=== PATIENT | female | born 1935 | race Caucasian/White ===

== ENCOUNTER → 2017-10-24 09:47 | Outpatient (CLI) | payer MEDICARE, BC, SELFPAY ==
--- NOTE | 2017-10-24 10:06 | XR_ITS ---
XR chest 2V Ordering Physician: Melissa Guzmán Patient Age: 82 years: Female HISTORY: ITS.REASON: SHORTNESS OF BREATH] TECHNIQUE: PA lateral chest COMPARISON :PA and lateral chest October 2013 most. Useful. FINDINGS Lungs are well expanded and clear, with nothing definitely acute No significant change since October 2013. Again the generous right infrahilar area is noted but appears similar, stable when technique considered. There is a loop recorder now evident, to the left of midline old projected over the left heart Heart is normal in size. Ellen Structures unremarkable. IMPRESSION: Lungs clear no active disease. . No change since previous 2013 study except to note the new Loop recorder anterior chest the left of midline
== END ==
PROVIDERS: PCP Nurse Practitioner Family; Visit Provider Nurse Practitioner Family
DX: R06.02 Shortness of breath (principal)
CPT/HCPCS: 71046

== ENCOUNTER → 2017-11-22 10:03 | Outpatient (POV) | payer MEDICARE, BC, SELFPAY | PROVIDERS: Family Provider Nurse Practitioner Family; PCP Nurse Practitioner Family; Visit Provider Otolaryngology | DX: Z00.00 Encounter for general adult medical examination without abnormal findings (principal) ==

== ENCOUNTER → 2017-12-09 10:03 | Outpatient (CLI) | payer MEDICARE, BC, SELFPAY ==
[2017-12-09 10:28] LABS: Blood Urea Nitrogen 31 mg/dL (7-18); Creatinine,Serum 0.65 mg/dL (0.55-1.02); Estimated Glomerular Filt Rate 88 ml/min (>60); GFR (African American) 106 ML/MIN (>60)
--- NOTE | 2017-12-09 10:40 | CT_ITS ---
CT soft tissue neck w con Ordering Physician: Rhina Salazar MD Patient Age: 82 years: Female HISTORY: ITS.REASON: GUSTATORY SWEATING HISTORY of surgery right neck for right neck nodule? Parotid mass. TECHNIQUE: Helical CT scanning performed through the cervical spine with sagittal and coronal reconstruction CT workstation COMPARISON :Previous CT neck 05/20/2016. FINDINGS Right parotid gland is been removed since previous study 2016. Surgical changes in the factors seen here anteriorly to the right ear. See no discrete findings at the resected parotid bed . However Deep to the resected parotid there is some stable mild asymmetric fullness at the right lateral parapharyngeal region. This area just superior to the submandibular gland on coronal image 19, 20, and seen just lateral to the base of the tongue is seen on axial images 30,-34.. Also evident on sagittal image 21, just below the angle of mandible. Estimated was likely present before and has not progressed. Likely a moderate size but fairly stable lymph node.. However It does warrant correlation and follow-up. It measures up to 13 mm , axial images times up to 17 mm height on sagittal slice 21 . No adenopathy otherwise seen at the right or left neck. ---- Incidental Right maxillary sinusitis: Layering bubbly thick air-fluid level at right maxillary sinus suggesting incidental active/acute right maxillary sinusitis. However only scant mucosal thickening at floor otherwise appreciated. Note dome shaped mucosal thickening or likely retention cyst at the floor the left maxillary sinus. 17 mm wide. 21 mm height. Densely calcified carotid bifurcation bilaterally.. Dense calcified plaque extending towards the right ICA with at least moderate stenosis here. Suspect 60-75 % stenosis. Consider CTA carotids to better evaluate. Less pronounced plaque stenosis at the origin of left internal carotid incidentally noted as well. Submandibular glands appear normal. Thyroid appears satisfactory. *There is a concerning new 10 mm times 11 mm irregular margin nodular density at the apex of left lung axial image [address] chest with contrast to further evaluate. . The prominent degenerative changes of the cervical spine are again observed with incomplete segmentation or/ fusion at C4/5 yielding kyphosis. 4 mm anterolisthesis of C3 on C4 is noted. Marked degenerative disc space narrowing posterior hypertrophic ridging and with slight retrolisthesis at C5/6. Features combine to yield central canal stenosis most evident at this level At C6/7 there disc space narrowing and mild spondylosis. These features appear stable. Yielding IMPRESSION--------- 1. Parotid gland has been resected since 2016. No discrete findings at the bed of the prostate itself. 2. However deep to the resected parotid bed there is a stable mild asymmetry noted., This likely due to a likely generous sized node at lateral right parapharyngeal region, lateral to the base the tongue & just superior to the submandibular gland,, just beneath angle of mandible on right... I believe this was evident previously an overall appears fairly stable since 2016. 3.. New 11 mm irregular new LUNG NODULE left apex. This is Concerning. Requires CT chest to further evaluate* 4. Significant calcification at carotid bifurcations bilaterally right greater than left. Calcified plaque extends to the proximal right ICA with moderate right ICA stenosis (est up to 60-75 % stenosis on this study) with less evident mild left ICA stenosis. 5.. Stable prominent degenerative changes cervical spine 6. Bubbly thick Air-fluid level right maxillary sinus suggesting active/acute right maxillary sinusitis.
--- NOTE | 2017-12-09 11:13 | HMH.ITSHM ---
SYNTHYROID,NAPROXEN,BACLOFEN,METOPROLOL ESTRADILOL
== END ==
PROVIDERS: Family Provider Nurse Practitioner Family; PCP Nurse Practitioner Family; Visit Provider Otolaryngology
DX: L74.519 Primary focal hyperhidrosis, unspecified (principal)
CPT/HCPCS: 36415; 70491; 82565; 84520; Q9967

== ENCOUNTER → 2017-12-15 11:34 | Outpatient (CLI) | payer MEDICARE, BC, SELFPAY ==
--- NOTE | 2017-12-15 | CT_ITS ---
CT chest w con HISTORY: Left apical mass ITS.REASON: LUNG MASS ORDERING PHYSICIAN: Rhina Salazar MD PATIENT AGE: 82 years TECHNIQUE: Axial images obtained following the administration of 75 mL of Isovue 370 . Sagittal, and coronal reformatted images are also generated and reviewed. COMPARISON: Neck CT of 12/09/2017 FINDINGS: No mediastinal or hilar adenopathy. Coronary artery calcifications present. A loop recorder device is present in the subcutaneous soft tissues in the precordial region on the left. There are centrilobular and paraseptal changes. No effusions or infiltrates are evident. A few scattered fibrotic areas. There is a 13 x 11 mm x 11 mm somewhat spiculated nodule in the left upper lobe in the central aspect of the apicoposterior segment. This is noncalcified and has a suspicious appearance for neoplasm. There are other noncalcified pulmonary nodules in both lungs including a 6 x 6 mm nodule in the right upper lobe laterally and in early, a 6 mm fissural nodule in the right major fissure inferiorly, a 5 mm nodule in the left upper lobe laterally. These latter nodules are smaller and less suspicious. Fibrotic changes are present in both lung bases. Upper abdominal images show a mildly enlarged left adrenal gland probably due to adenomatous involvement. No bony destructive process. IMPRESSION: 1. 13 x 11 mm suspicious nodule in the left upper lobe suspicious for neoplasm. Consider PET/CT for further evaluation. Additional small nodules are present in both lungs as described above and may also be evaluated with PET CT. 2. No mediastinal or hilar adenopathy. 3. Centrilobular and paraseptal emphysematous changes. 4. Coronary artery disease
== END ==
PROVIDERS: Family Provider Nurse Practitioner Family; PCP Nurse Practitioner Family; Visit Provider Otolaryngology
DX: R91.8 Other nonspecific abnormal finding of lung field (principal)
CPT/HCPCS: 71260; Q9967

== ENCOUNTER → 2018-01-02 10:37 | Outpatient (POV) | payer MEDICARE, BC, SELFPAY ==
[2018-01-02 10:51] VITALS: BP 150/62; PULSE 65; RESP 24; O2SAT 97; BMI 26.5
--- NOTE | 2018-01-02 11:50 | HMH.PMCON ---
Assessment and Plan (1) Postlaminectomy syndrome Current visit: Yes Status: Chronic Category: Medical Code(s): M96.1 - Postlaminectomy syndrome, not elsewhere classified (2) Degenerative disc disease, lumbar Current visit: Yes Status: Chronic Category: Medical Code(s): M51.36 - Other intervertebral disc degeneration, lumbar region - Assessment and plan all Dx Assessment and Plan for all problems:: We will begin the process of potentially doing an intrathecal pain pump. Patient will go for a psychological evaluation and then we will trial. Patient has realistic goals as far as pain management. We had a long discussion about intrathecal pain pump and I answered all her questions. Patient is not on any blood thinners. Patient's tried and failed medications, anti-inflammatories, physical therapy, surgery. I will follow-up this patient after her intrathecal pain pump trial. This note was dictated using voice recognition software and may contain errors or omissions HPI - Data of Consult Consult date: 01/02/18 Requesting Physician: Greta Soto APRN Primary Care Provider: Melissa Guzmán APRN Family Provider: Melissa Guzmán APRN - Consult Narrative Reason for consult: Back pain History of present illness: Ms. Mccarthy is a 83 year old female who presents today for consultation in regards to her low back pain. Patient has had 2 back surgeries a few years ago. Patient has had lower back pain since then. Patient states that the surgery did help her bilateral leg pain. Patient had an injury back in the 1980s which was the start of her issues. Patient has tried surgery, injective therapy, medications. Patient also has done physical therapy in the past. Patient has had no long-term relief. Patient would like to have more functionality. Patient would like to be able to do her activities of daily living better. Patient is not interested in long-term pain medications. I believe that given her age that this is appropriate. Patient is interested in intrathecal pain pump therapy CC: Greta Soto APRN [facility] History I have reviewed the patient's past medical history: Yes Medical History: Reports:: Hyperlipidemia, Hypertension Denies:: Diabetes Mellitus Type 1, Diabetes Mellitus Type 2 - *Social History Educational Level: Attended High School Smoking Status: Current some day smoker Tobacco Type: cigarettes # Packs/Day (cigarettes): 1 Alcohol Intake: never Occupational Status: retired, disabled Housing: apartment - Psychiatric History Expresses thoughts of harming self/others: None Suicide Plan Description: No Plan Comment: Rheumatoid arthritis Review of Systems - Review of Systems ROS General: no recent weight change, no fever, no sleep disturbances Respiratory: no cough, no shortness of air, no recurring pulmonary infections Cardiovascular/Peripheral Vascular: No chest pain, No palpitations, no edema, no shortness of breath. Gastrointestinal: no incontinence, normal bowel movements reported Genitourinary: no new onset incontinence Musculoskeletal: Back pain Psychiatric: normal mood/ affect Neurological: [denies weakness in extremities], [denies balance issues] Meds Home Medications Medication Instructions Recorded Confirmed Type Baclofen [Lioresal 10mg tablet] 10 mg PO TID 01/02/18 01/02/18 History Estradiol [Estradiol] 1 mg PO DAILY 01/02/18 01/02/18 History Levothyroxine Sodium 50 mcg PO DAILY 01/02/18 01/02/18 History [Levothyroxine 50mcg (0.05mg) Tab] Metoprolol Tartrate [Metoprolol 50 mg PO BID 01/02/18 01/02/18 History Tartrate] Naproxen [Naproxen] 500 mg PO BID 01/02/18 01/02/18 History Pravastatin Sodium 10 mg PO DAILY 01/02/18 01/02/18 History Allergies Allergy/AdvReac Type Severity Reaction Status Date / Time Tetanus Vaccines and Toxoid Allergy Unknown SWELLING Unverified 09/20/17 15:19 [Tetanus Vaccines & Toxoid] Objective Vital
--- NOTE | 2018-01-02 11:54 | P.CONS_ITS ---
Assessment and Plan (1) Postlaminectomy syndrome Current visit: Yes Status: Chronic Category: Medical Code(s): M96.1 - Postlaminectomy syndrome, not elsewhere classified (2) Degenerative disc disease, lumbar Current visit: Yes Status: Chronic Category: Medical Code(s): M51.36 - Other intervertebral disc degeneration, lumbar region - Assessment and plan all Dx Assessment and Plan for all problems:: We will begin the process of potentially doing an intrathecal pain pump. Patient will go for a psychological evaluation and then we will trial. Patient has realistic goals as far as pain management. We had a long discussion about intrathecal pain pump and I answered all her questions. Patient is not on any blood thinners. Patient's tried and failed medications, anti-inflammatories, physical therapy, surgery. I will follow-up this patient after her intrathecal pain pump trial. This note was dictated using voice recognition software and may contain errors or omissions HPI - Data of Consult Consult date: 01/02/18 Requesting Physician: Greta Soto APRN Primary Care Provider: Melissa Guzmán APRN Family Provider: Melissa Guzmán APRN - Consult Narrative Reason for consult: Back pain History of present illness: Ms. Mccarthy is a 83 year old female who presents today for consultation in regards to her low back pain. Patient has had 2 back surgeries a few years ago. Patient has had lower back pain since then. Patient states that the surgery did help her bilateral leg pain. Patient had an injury back in the 1980s which was the start of her issues. Patient has tried surgery, injective therapy, medications. Patient also has done physical therapy in the past. Patient has had no long-term relief. Patient would like to have more functionality. Patient would like to be able to do her activities of daily living better. Patient is not interested in long-term pain medications. I believe that given her age that this is appropriate. Patient is interested in intrathecal pain pump therapy CC: Greta Soto APRN [facility] History I have reviewed the patient's past medical history: Yes Medical History: Reports:: Hyperlipidemia, Hypertension Denies:: Diabetes Mellitus Type 1, Diabetes Mellitus Type 2 - *Social History Educational Level: Attended High School Smoking Status: Current some day smoker Tobacco Type: cigarettes # Packs/Day (cigarettes): 1 Alcohol Intake: never Occupational Status: retired, disabled Housing: apartment - Psychiatric History Expresses thoughts of harming self/others: None Suicide Plan Description: No Plan Comment: Rheumatoid arthritis Review of Systems - Review of Systems ROS General: no recent weight change, no fever, no sleep disturbances Respiratory: no cough, no shortness of air, no recurring pulmonary infections Cardiovascular/Peripheral Vascular: No chest pain, No palpitations, no edema, no shortness of breath. Gastrointestinal: no incontinence, normal bowel movements reported Genitourinary: no new onset incontinence Musculoskeletal: Back pain Psychiatric: normal mood/ affect Neurological: [denies weakness in extremities], [denies balance issues] Meds Home Medications Medication Instructions Recorded Confirmed Type Baclofen [Lioresal 10mg tablet] 10 mg PO TID 01/02/18 01/02/18 History Estradiol [Estradiol] 1 mg PO DAILY 01/02/18 01/02/18 History Levothyroxine Sodium 50 mcg PO DAILY 01/02/18 01/02/18 History [Levothyr
== END ==
PROVIDERS: Family Provider Nurse Practitioner Family; PCP Nurse Practitioner Family; Visit Provider Clinical Nurse Specialist Family Health
DX: M51.36 Other intervertebral disc degeneration, lumbar region (principal)
CPT/HCPCS: 99212; 99202

== ENCOUNTER → 2018-01-31 10:01 | Outpatient (POV) | payer MEDICARE, BC, SELFPAY ==
[2018-01-31 10:08] VITALS: BP 139/67; PULSE 64; RESP 18; TEMP 36.6; O2SAT 98; BMI 26.1
--- NOTE | 2018-01-31 10:23 | HMH.PAINSOAP ---
[facility] Pain Management SOAP Note Subjective:: Patient is a pleasant 83-year-old white female who presents today for follow-up after intrathecal pain pump trial. Patient states that during her trial she had 80-90% relief of her pain symptoms lasting up to 4-5 hours post trial. Patient states she was much more functional. Physical therapy measurements showed market improvement pre-and post trial. Patient states she was able to walk better. Patient denies any side effects. Patient is interested in pursuing permanent placement of intrathecal pain pump. The intrathecal catheter was placed at T12 vertebral body. She has tried and failed other conservative therapy such as previous surgery, injections, local therapy, medications. ROS General: no recent weight change, no fever, no sleep disturbances Respiratory: no cough, no shortness of air, no recurring pulmonary infections Cardiovascular/Peripheral Vascular: No chest pain, No palpitations, no edema, no shortness of breath. Gastrointestinal: no incontinence, normal bowel movements reported Genitourinary: no incontinence Musculoskeletal: Back pain, bilateral leg pain Psychiatric: normal mood/ affect, [denies depression], [denies anxiety] Neurological: [denies weakness in extremities], [denies balance issues] Objective:: Physical Exam General: Alert and oriented x3, no acute distress, pleasant and cooperative, [on room air] Lungs: Resps E/U, Symmetrical chest expansion, Eyes: PERRL Musculoskeletal: Flexion and extension of lumbar spine somewhat guarded secondary to pain, deep tendon reflexes normal, strength in upper and lower extremities [5/5], [abnormal gait noted] Neurological: speech clear, ceramic painter equal, no gross sensory deficits Assessment:: Degenerative disc disease of lumbar spine with lumbar radiculopathy symptoms of postlaminectomy syndrome of the lumbar spine Plan:: We will schedule permanent placement of intrathecal pain pump. We will start the patient on intrathecal morphine 5 mg/mL and start her at 0.25 mg per day with the catheter tip being at T12 per Dr. Hayward. I will follow-up with the patient after her intrathecal pain pump placement. Patient and I discussed risks and I answered all of her questions. Patient has been instructed to call the office if she has any additional questions. This note was dictated using voice recognition software and may contain errors or omissions
--- NOTE | 2018-01-31 10:27 | P.CONS_ITS ---
[facility] Pain Management SOAP Note Subjective:: Patient is a pleasant 83-year-old white female who presents today for follow-up after intrathecal pain pump trial. Patient states that during her trial she had 80-90% relief of her pain symptoms lasting up to 4-5 hours post trial. Patient states she was much more functional. Physical therapy measurements showed market improvement pre-and post trial. Patient states she was able to walk better. Patient denies any side effects. Patient is interested in pursuing permanent placement of intrathecal pain pump. The intrathecal catheter was placed at T12 vertebral body. She has tried and failed other conservative therapy such as previous surgery, injections, local therapy, medications. ROS General: no recent weight change, no fever, no sleep disturbances Respiratory: no cough, no shortness of air, no recurring pulmonary infections Cardiovascular/Peripheral Vascular: No chest pain, No palpitations, no edema, no shortness of breath. Gastrointestinal: no incontinence, normal bowel movements reported Genitourinary: no incontinence Musculoskeletal: Back pain, bilateral leg pain Psychiatric: normal mood/ affect, [denies depression], [denies anxiety] Neurological: [denies weakness in extremities], [denies balance issues] Objective:: Physical Exam General: Alert and oriented x3, no acute distress, pleasant and cooperative, [ on room air] Lungs: Resps E/U, Symmetrical chest expansion, Eyes: PERRL Musculoskeletal: Flexion and extension of lumbar spine somewhat guarded secondary to pain, deep tendon reflexes normal, strength in upper and lower extremities [5/5], [abnormal gait noted] Neurological: speech clear, driving instructor equal, no gross sensory deficits Assessment:: Degenerative disc disease of lumbar spine with lumbar radiculopathy symptoms of postlaminectomy syndrome of the lumbar spine Plan:: We will schedule permanent placement of intrathecal pain pump. We will start the patient on intrathecal morphine 5 mg/mL and start her at 0.25 mg per day with the catheter tip being at T12 per Dr. Hayward. I will follow-up with the patient after her intrathecal pain pump placement. Patient and I discussed risks and I answered all of her questions. Patient has been instructed to call the office if she has any additional questions. This note was dictated using voice recognition software and may contain errors or omissions
== END ==
PROVIDERS: Family Provider Nurse Practitioner Family; PCP Nurse Practitioner Family; Visit Provider Clinical Nurse Specialist Family Health
DX: M54.16 Radiculopathy, lumbar region (principal)
CPT/HCPCS: 99212

== ENCOUNTER → 2018-04-04 09:22 | Outpatient (POV) | payer MEDICARE, BC, SELFPAY ==
[2018-04-04 09:36] VITALS: BP 119/75; PULSE 110; RESP 18; O2SAT 96; BMI 27.1
--- NOTE | 2018-04-04 10:30 | HMH.PAINSOAP ---
[facility] Pain Management SOAP Note Subjective:: Patient is a pleasant 83-year-old white female who presents today for follow-up after intrathecal pain pump patient. Patient is currently on a pump of 0.25 mg per day. Patient rates her pain a 1 out of 10 today. She states she is doing very well she does have some intermittent nausea would like some medication for this. Patient states that she is having better bladder control than typical. Patient had her stitches removed the site looks good clean and intact there is no sign symptoms of infection. Patient is continuing to wear her abdominal binder. ROS General: no recent weight change, no fever, no sleep disturbances Respiratory: no cough, no shortness of air, no recurring pulmonary infections Cardiovascular/Peripheral Vascular: No chest pain, No palpitations, no edema, no shortness of breath. Gastrointestinal: no incontinence, normal bowel movements reported Genitourinary: no incontinence Musculoskeletal: Back pain, leg pain Psychiatric: normal mood/ affect Neurological: [denies weakness in extremities], [denies balance issues] Objective:: Physical Exam General: Alert and oriented x3, no acute distress, pleasant and cooperative, [on room air] Lungs: Resps E/U, Symmetrical chest expansion, Eyes: PERRL Musculoskeletal: Flexion and extension of lumbar spine somewhat guarded secondary to pain, deep tendon reflexes normal, strength in upper and lower extremities [5/5], nightly antalgic gait noted, patient is no longer utilizing a cane for stability Neurological: speech clear, supreme court judge equal, no gross sensory deficits Assessment:: Degenerative disc disease of the lumbar spine with lumbar radiculopathy symptoms with postlaminectomy syndrome of the lumbar spine Plan:: I will see the patient back in 2 weeks we will reassess her symptoms and adjust her in any way she may need. Patient is doing extremely well on her morphine 0.25 mg a day infusion. Patient has been instructed to call our office if she has any issues prior to her next appointment. We will call in Zofran 4 mg 1 p.o. every 8 hours as needed for the patient. This note was dictated using voice recognition software and may contain errors or omissions
--- NOTE | 2018-04-04 10:33 | P.CONS_ITS ---
[facility] Pain Management SOAP Note Subjective:: Patient is a pleasant 83-year-old white female who presents today for follow-up after intrathecal pain pump patient. Patient is currently on a pump of 0.25 mg per day. Patient rates her pain a 1 out of 10 today. She states she is doing very well she does have some intermittent nausea would like some medication for this. Patient states that she is having better bladder control than typical. Patient had her stitches removed the site looks good clean and intact there is no sign symptoms of infection. Patient is continuing to wear her abdominal binder. ROS General: no recent weight change, no fever, no sleep disturbances Respiratory: no cough, no shortness of air, no recurring pulmonary infections Cardiovascular/Peripheral Vascular: No chest pain, No palpitations, no edema, no shortness of breath. Gastrointestinal: no incontinence, normal bowel movements reported Genitourinary: no incontinence Musculoskeletal: Back pain, leg pain Psychiatric: normal mood/ affect Neurological: [denies weakness in extremities], [denies balance issues] Objective:: Physical Exam General: Alert and oriented x3, no acute distress, pleasant and cooperative, [ on room air] Lungs: Resps E/U, Symmetrical chest expansion, Eyes: PERRL Musculoskeletal: Flexion and extension of lumbar spine somewhat guarded secondary to pain, deep tendon reflexes normal, strength in upper and lower extremities [5/5], nightly antalgic gait noted, patient is no longer utilizing a cane for stability Neurological: speech clear, postulant equal, no gross sensory deficits Assessment:: Degenerative disc disease of the lumbar spine with lumbar radiculopathy symptoms with postlaminectomy syndrome of the lumbar spine Plan:: I will see the patient back in 2 weeks we will reassess her symptoms and adjust her in any way she may need. Patient is doing extremely well on her morphine 0.25 mg a day infusion. Patient has been instructed to call our office if she has any issues prior to her next appointment. We will call in Zofran 4 mg 1 p.o. every 8 hours as needed for the patient. This note was dictated using voice recognition software and may contain errors or omissions
== END ==
PROVIDERS: Family Provider Nurse Practitioner Family; PCP Nurse Practitioner Family; Visit Provider Clinical Nurse Specialist Family Health
DX: M54.16 Radiculopathy, lumbar region (principal)
CPT/HCPCS: 99212

== ENCOUNTER → 2018-04-07 12:51 | Outpatient (POV) | payer MEDICARE, BC, SELFPAY ==
[2018-04-07 13:03] VITALS: BP 148/78; PULSE 78; RESP 18; TEMP 36.6; O2SAT 98; BMI 28.1
--- NOTE | 2018-04-07 14:57 | HMH.PAINSOAP ---
[facility] Pain Management SOAP Note Subjective:: This patient is a pleasant 83-year-old white female who had permanent placement of intrathecal pain pump done 2 weeks ago. Presented for removal of the sutures on Tuesday of this week. She did notice some excessive drainage so she presented to the clinic today. She does have good pain control. She currently is on an intrathecal morphine infusion at 0.25 mg per day. Pain score is a 1 out of 10. She is more active. On looking at her incision she does have some serosanguineous drainage however the incision does not look infected. She does have some redness around her incision site where sutures were previously. She has no pain around the incision site. We will redress her incision site with Steri-Strips, 4 x 4's, and ABD pad and tape. She has completed her course of Bactrim. We will follow-up her on Tuesday to make sure her drainage has decreased and incision is healing appropriately. Objective:: Alert and oriented ?3 no acute distress. Patient does have an antalgic gait. Motor strength of the lower extremities is 5/5. There is no gross sensory deficit. Both incisions are healing very nice. There is some drainage from her pump site incision however it does not look infected at this time. Assessment:: Degenerative disc disease of lumbar spine with lumbar radiculopathy symptoms with intrathecal morphine pain pump in place and some drainage from her pump site incision Plan:: We will redress her incision site with Steri-Strips, 4 x 4's, and ABD pad and tape. She has completed her course of Bactrim. We will follow-up her on Tuesday to make sure her drainage has decreased and incision is healing appropriately.
== END ==
PROVIDERS: Family Provider Nurse Practitioner Family; PCP Nurse Practitioner Family; Visit Provider Anesthesiology
DX: M54.16 Radiculopathy, lumbar region (principal)

== ENCOUNTER → 2018-04-11 09:56 | Outpatient (POV) | payer MEDICARE, BC, SELFPAY ==
[2018-04-11 10:05] VITALS: BP 143/80; PULSE 80; RESP 18; O2SAT 98; BMI 28.1
--- NOTE | 2018-04-11 11:42 | HMH.PAINSOAP ---
[facility] Pain Management SOAP Note Subjective:: Patient is a pleasant 83-year-old white female who presents today for follow-up. Patient had a permanent placement of intrathecal pain pump several weeks ago. Patient had some excessive draining on Tuesday. Patient was seen by Dr. Hayward and the incision was Steri-Stripped and redressed. Patient presents today with a bandage on her back however after removal of the bandage there is no presence of fluid. There is no sign symptoms of infection. The Steri-Strips were still in place. Patient states that her pain is a 2 out of 10. She states she is doing extremely well and denies any side effects to her and her intrathecal infusion. Patient's PTC is set up at 0.06 mg over 10 minutes up to twice a day. ROS General: no recent weight change, no fever, no sleep disturbances Respiratory: no cough, no shortness of air, no recurring pulmonary infections Cardiovascular/Peripheral Vascular: No chest pain, No palpitations, no edema, no shortness of breath. Gastrointestinal: no new onset incontinence, normal bowel movements reported Genitourinary: no new onset incontinence Musculoskeletal: Back pain Psychiatric: normal mood/ affect Neurological: [denies weakness in extremities], [denies balance issues] Objective:: Physical Exam General: Alert and oriented x3, no acute distress, pleasant and cooperative, [on room air] Lungs: Resps E/U, Symmetrical chest expansion, Eyes: PERRL Musculoskeletal: Flexion and extension of lumbar spine somewhat guarded secondary to pain, deep tendon reflexes normal, strength in upper and lower extremities [5/5], slightly antalgic gait noted Name: Incision over intrathecal pain pump closed no drainage noted, no redness noted, incision over anchor has a scab in place no drainage noted no redness noted. Neurological: speech clear, gasfitter equal, no gross sensory deficits Assessment:: Degenerative disc disease of lumbar spine with lumbar radiculopathy symptoms Plan:: I will see the patient back in 2 weeks we will reassess her pain symptoms at that time. Patient's been instructed to call the office if she has any issues prior to that. Patient is going to continue to keep the site clean and dry. This note was dictated using voice recognition software and may contain errors or omissions
--- NOTE | 2018-04-11 11:45 | P.CONS_ITS ---
[facility] Pain Management SOAP Note Subjective:: Patient is a pleasant 83-year-old white female who presents today for follow- up. Patient had a permanent placement of intrathecal pain pump several weeks ago. Patient had some excessive draining on Tuesday. Patient was seen by Dr. Hayward and the incision was Steri-Stripped and redressed. Patient presents today with a bandage on her back however after removal of the bandage there is no presence of fluid. There is no sign symptoms of infection. The Steri-Strips were still in place. Patient states that her pain is a 2 out of 10. She states she is doing extremely well and denies any side effects to her and her intrathecal infusion. Patient's PTC is set up at 0.06 mg over 10 minutes up to twice a day. ROS General: no recent weight change, no fever, no sleep disturbances Respiratory: no cough, no shortness of air, no recurring pulmonary infections Cardiovascular/Peripheral Vascular: No chest pain, No palpitations, no edema, no shortness of breath. Gastrointestinal: no new onset incontinence, normal bowel movements reported Genitourinary: no new onset incontinence Musculoskeletal: Back pain Psychiatric: normal mood/ affect Neurological: [denies weakness in extremities], [denies balance issues] Objective:: Physical Exam General: Alert and oriented x3, no acute distress, pleasant and cooperative, [ on room air] Lungs: Resps E/U, Symmetrical chest expansion, Eyes: PERRL Musculoskeletal: Flexion and extension of lumbar spine somewhat guarded secondary to pain, deep tendon reflexes normal, strength in upper and lower extremities [5/5], slightly antalgic gait noted Name: Incision over intrathecal pain pump closed no drainage noted, no redness noted, incision over anchor has a scab in place no drainage noted no redness noted. Neurological: speech clear, analytics analyst equal, no gross sensory deficits Assessment:: Degenerative disc disease of lumbar spine with lumbar radiculopathy symptoms Plan:: I will see the patient back in 2 weeks we will reassess her pain symptoms at that time. Patient's been instructed to call the office if she has any issues prior to that. Patient is going to continue to keep the site clean and dry. This note was dictated using voice recognition software and may contain errors or omissions
== END ==
PROVIDERS: Family Provider Nurse Practitioner Family; PCP Nurse Practitioner Family; Visit Provider Clinical Nurse Specialist Family Health
DX: M54.16 Radiculopathy, lumbar region (principal)
CPT/HCPCS: 99212

== ENCOUNTER → 2018-04-25 09:15 | Outpatient (POV) | payer MEDICARE, BC, SELFPAY ==
[2018-04-25 09:30] VITALS: BP 147/61; PULSE 65; RESP 18; O2SAT 98; BMI 25.8
--- NOTE | 2018-04-25 09:33 | HMH.PAINSOAP ---
[facility] Pain Management SOAP Note Subjective:: Is a pleasant 83-year-old white female who presents today for follow-up. Patient is doing well with her intrathecal pain pump. Patient had some draining however that has begun to decrease. Patient has been keeping bandages on the incision site. I discussed with her leaving the bandages off and allowing it to dry. I also discussed putting Neosporin on it once a day. To help with the scar. Shunt site looks good no drainage noted at this time. No redness noted. Patient rates her pain a 3 out of 10 today. She states that her pain gets worse in the afternoon but her PTC controls it. Patient states that she does not need any changes made to her pump today. Patient's currently on a morphine infusion of 0.25 mg. Patient denies any side effects. Patient states she is much more functional and is able to stand up straight for the first time in years. ROS General: no recent weight change, no fever, no sleep disturbances Respiratory: no cough, no shortness of air, no recurring pulmonary infections Cardiovascular/Peripheral Vascular: No chest pain, No palpitations, no edema, no shortness of breath. Gastrointestinal: no incontinence, normal bowel movements reported Genitourinary: no incontinence Musculoskeletal: Back pain Psychiatric: normal mood/ affect Neurological: [denies weakness in extremities], [denies balance issues] Objective:: Physical Exam General: Alert and oriented x3, no acute distress, pleasant and cooperative, [on room air] Lungs: Resps E/U, Symmetrical chest expansion, Eyes: PERRL Musculoskeletal: Flexion and extension of lumbar spine somewhat guarded secondary to pain, deep tendon reflexes normal, strength in upper and lower extremities [5/5], slightly antalgic gait noted Neurological: speech clear, new car sales manager equal, no gross sensory deficits Assessment:: Degenerative disc disease of the lumbar spine with lumbar radiculopathy symptoms Plan:: I will follow-up with the patient in 1 week just to reinspect her incision. Patient's been instructed to call the office if she has any issues prior to this. This note was dictated using voice recognition software and may contain errors or omissions
--- NOTE | 2018-04-25 09:38 | P.CONS_ITS ---
[facility] Pain Management SOAP Note Subjective:: Is a pleasant 83-year-old white female who presents today for follow-up. Patient is doing well with her intrathecal pain pump. Patient had some draining however that has begun to decrease. Patient has been keeping bandages on the incision site. I discussed with her leaving the bandages off and allowing it to dry. I also discussed putting Neosporin on it once a day. To help with the scar. Shunt site looks good no drainage noted at this time. No redness noted. Patient rates her pain a 3 out of 10 today. She states that her pain gets worse in the afternoon but her PTC controls it. Patient states that she does not need any changes made to her pump today. Patient's currently on a morphine infusion of 0.25 mg. Patient denies any side effects. Patient states she is much more functional and is able to stand up straight for the first time in years. ROS General: no recent weight change, no fever, no sleep disturbances Respiratory: no cough, no shortness of air, no recurring pulmonary infections Cardiovascular/Peripheral Vascular: No chest pain, No palpitations, no edema, no shortness of breath. Gastrointestinal: no incontinence, normal bowel movements reported Genitourinary: no incontinence Musculoskeletal: Back pain Psychiatric: normal mood/ affect Neurological: [denies weakness in extremities], [denies balance issues] Objective:: Physical Exam General: Alert and oriented x3, no acute distress, pleasant and cooperative, [ on room air] Lungs: Resps E/U, Symmetrical chest expansion, Eyes: PERRL Musculoskeletal: Flexion and extension of lumbar spine somewhat guarded secondary to pain, deep tendon reflexes normal, strength in upper and lower extremities [5/5], slightly antalgic gait noted Neurological: speech clear, sleeper cutter equal, no gross sensory deficits Assessment:: Degenerative disc disease of the lumbar spine with lumbar radiculopathy symptoms Plan:: I will follow-up with the patient in 1 week just to reinspect her incision. Patient's been instructed to call the office if she has any issues prior to this. This note was dictated using voice recognition software and may contain errors or omissions
== END ==
PROVIDERS: Family Provider Nurse Practitioner Family; PCP Nurse Practitioner Family; Visit Provider Clinical Nurse Specialist Family Health
DX: M54.16 Radiculopathy, lumbar region (principal)
CPT/HCPCS: 99212

== ENCOUNTER → 2018-05-03 10:25 | Outpatient (POV) | payer MEDICARE, BC, SELFPAY ==
[2018-05-03 10:41] VITALS: BP 137/98; PULSE 71; RESP 18; O2SAT 98; BMI 26.9
--- NOTE | 2018-05-03 11:02 | HMH.PAINSOAP ---
[facility] Pain Management SOAP Note Subjective:: Patient comes in today for follow-up of placement of a pain pump system. Patient had separation of her generator incision. This was closed by me in my office in [place] last week. She comes in today for follow-up Objective:: Incision is stable with negligible drainage. No sutures removed. No obvious infection Assessment:: Impression recent separation of her pain pump generator incision?stable in appearance Plan:: We will continue to try to salvage this generator. She will clean it daily with saline treat with Betadine solution and covered with bandages and continue with the binder. She was seen in follow-up in the office here in [place] next week and if I need to see it she will be referred back to [place]. Continue Keflex. Contact me sooner for any changes
--- NOTE | 2018-05-03 11:03 | PC.PHONENOTE ---
called in Rx for Cipro 500mg BID x7 days per dr. rogers' order
--- NOTE | 2018-05-03 11:05 | P.CONS_ITS ---
[facility] Pain Management SOAP Note Subjective:: Patient comes in today for follow-up of placement of a pain pump system. Patient had separation of her generator incision. This was closed by me in my office in [place] last week. She comes in today for follow-up Objective:: Incision is stable with negligible drainage. No sutures removed. No obvious infection Assessment:: Impression recent separation of her pain pump generator incision?stable in appearance Plan:: We will continue to try to salvage this generator. She will clean it daily with saline treat with Betadine solution and covered with bandages and continue with the binder. She was seen in follow-up in the office here in [place] next week and if I need to see it she will be referred back to [place]. Continue Keflex. Contact me sooner for any changes
== END ==
PROVIDERS: Family Provider Nurse Practitioner Family; PCP Nurse Practitioner Family; Visit Provider Surgery
DX: Z09 Encounter for follow-up examination after completed treatment for conditions other than malignant neoplasm (principal); Z97.8 Presence of other specified devices

== ENCOUNTER → 2018-05-08 10:50 | Outpatient (POV) | payer MEDICARE, BC, SELFPAY ==
[2018-05-08 11:21] VITALS: BP 121/99; PULSE 73; RESP 18; O2SAT 98; BMI 26.2
--- NOTE | 2018-05-08 12:22 | HMH.PAINSOAP ---
[facility] Pain Management SOAP Note Subjective:: Patient is a pleasant 83-year-old white female who presents today for follow-up. Patient had an intrathecal pain pump implanted quite a while ago however she had a separation of her generator incision. Dr. graham conte more close her incision and [place]. Patient is following up today. Patient is continuing on her Keflex. Patient is doing dressing changes at home. Patient is still having some drainage however it is thin and strawlike in color. Rates her pain a 4 out of 10 today. She states it is a little increased due to some life changes at home. ROS General: no recent weight change, no fever, no sleep disturbances Respiratory: no cough, no shortness of air, no recurring pulmonary infections Cardiovascular/Peripheral Vascular: No chest pain, No palpitations, no edema, no shortness of breath. Gastrointestinal: no incontinence, normal bowel movements reported Genitourinary: no incontinence Musculoskeletal: Back Psychiatric: normal mood/ affect, [denies depression], [denies anxiety] Neurological: [denies weakness in extremities], [denies balance issues] Objective:: Physical Exam General: Alert and oriented x3, no acute distress, pleasant and cooperative, [on room air] Lungs: Resps E/U, Symmetrical chest expansion, Eyes: PERRL Musculoskeletal: Flexion and extension of lumbar spine somewhat guarded secondary to pain, deep tendon reflexes normal, strength in upper and lower extremities [5/5], [abnormal gait noted] Skin: Incision is stable with little drainage, no sutures removed. No obvious infection Neurological: speech clear, lead generation marketing manager equal, no gross sensory deficits Assessment:: Degenerative disc disease of the lumbar spine and recent separation of her pain pump generator incision Plan:: Follow-up with this patient in 1 week she has been instructed call the office if there are any immediate changes with her incision. Patient is to continue her Keflex. This note was dictated using voice recognition software and may contain errors or omissions
== END ==
PROVIDERS: Family Provider Nurse Practitioner Family; PCP Nurse Practitioner Family; Visit Provider Clinical Nurse Specialist Family Health
DX: M51.36 Other intervertebral disc degeneration, lumbar region (principal)
CPT/HCPCS: 99212

== ENCOUNTER 2018-05-14 18:37 | Inpatient (IN) ==
[2018-05-14 19:49] LABS: Basophils # 0.1 K/mm3 (0-0.2); Basophils % 0.6 % (0.1-2.0); Eosinophils # 0.2 K/mm3 (0.0-0.4); Eosinophils % 1.7 % (0.1-12.0); Hematocrit 41.4 % (37.0-47.0); Hemoglobin 13.2 g/dL (12.2-16.2); Lymphocytes # 1.3 K/mm3 (0.7-4.5); Lymphocytes % 9.9 K/mm3 (10-50); Mean Corpuscular HGB Conc 31.8 g/dL (31.8-35.4); Mean Corpuscular Hemoglobin 29.4 pg (27.0-31.2); Mean Corpuscular Volume 92.6 fl (81-99); Mean Platelet Volume 6.8 fl (7.4-10.4); Monocytes # 0.7 K/mm3 (0.1-1.0); Monocytes % 5.2 % (1.7-9.3); Neutrophils # 11.1 K/mm3 (1.8-7.8); Neutrophils % 82.6 % (37.0-80.0); Platelet Count 454 K/mm3 (142-424); Red Blood Count 4.47 M/mm3 (4.20-5.40); Red Cell Distribution Width 12.4 % (11.5-17.5); White Blood Count 13.5 K/mm3 (4.8-10.8)
[2018-05-14 20:11] LABS: Alanine Aminotransferase 18 U/L (12-78); Albumin Level 3.3 gm/dL (3.4-5.0); Albumin/Globulin Ratio 0.8 (1.1-1.8); Alkaline Phosphatase 72 U/L (46-116); Anion Gap 8.7 mEq/L (5-15); Aspartate Amino Transferase 11 U/L (15-37); Bilirubin,Total 0.4 mg/dL (0.2-1.0); Blood Urea Nitrogen 17 mg/dL (7-18); Carbon Dioxide 30 mmol/L (21.0-32.0); Chloride 103 mmol/L (98-107); Creatine Kinase 29 U/L (26-192); Globulin 4.1 gm/dl (1.3-3.2); Glucose 122 mg/dL (74-106); Potassium 3.7 mmoL/L (3.5-5.1); Sodium 138 mmol/L (136-145); Total Protein,Serum 7.4 gm/dL (6.4-8.2)
--- NOTE | 2018-05-14 20:16 | Emergency Department Note ---
ED Disposition Clinical Impression: Nausea Deep incisional surgical site infection Qualifiers: Encounter type: initial encounter Qualified Code(s): T81.4XXA - Infection following a procedure, initial encounter Syncope Qualifiers: Syncope type: unspecified Qualified Code(s): R55 - Syncope and collapse Lung cancer Qualifiers: Laterality: left Lung location: upper lobe of lung Qualified Code(s): C34.12 - Malignant neoplasm of upper lobe, left bronchus or lung Headache Qualifiers: Headache type: tension-type Headache chronicity pattern: acute headache Intractability: not intractable Qualified Code(s): G44.209 - Tension-type headache, unspecified, not intractable Disposition: Admitted As Inpatient Condition on Discharge: Fair Time of Disposition: 21:30 - Critical Care Critical Care Time: No Attestation: On 05/14/18, the high probability of a clinically significant, sudden or life threatening deterioration of the following system(s) required my full and direct attention, intervention and personal management. The time I documented below is in addition to time spent performing reported procedures but includes the following listed in this critical care notation. Medical Decision Making - Medical Records Medical records reviewed: Yes: I reviewed the patient's medical records. - Kevin Inquiry Pt receiving controlled substance: No Vital Signs: 05/14/18 18:42 05/14/18 19:35 05/14/18 20:24 Temperature 99.8 F H 98.9 F Temperature Source Oral Oral Pulse Rate Pulse Rate [Right Brachial] 98 H 101 H 103 H Respiratory Rate 14 14 18 Blood Pressure Blood Pressure [Right Arm] 143/90 169/98 171/69 Blood Pressure Mean [Right Arm] 107 121 103 Blood Pressure Source [Right Arm] Automatic Cuff Automatic Cuff Blood Pressure Position [Right Arm] Sitting Supine 02 Sat by Pulse Oximetry 98 96 94 L Oxygen Delivery Method Room Air Room Air Room Air 05/14/18 20:31 05/14/18 20:42 05/14/18 21:40 Temperature Temperature Source Pulse Rate Pulse Rate [Right Brachial] 109 H 99 H 84 Respiratory Rate 14 14 16 Blood Pressure Blood Pressure [Right Arm] 171/69 176/75 168/48 Blood Pressure Mean [Right Arm] 103 108 88 Blood Pressure Source [Right Arm] Automatic Cuff Blood Pressure Position [Right Arm] Sitting 02 Sat by Pulse Oximetry 95 95 92 L Oxygen Delivery Method Room Air Room Air 05/14/18 22:12 05/14/18 22:40 05/14/18 22:59 Temperature 98.9 F Temperature Source Oral Pulse Rate 84 Pulse Rate [Right Brachial] 87 Respiratory Rate 15 16 Blood Pressure 169/83 Blood Pressure [Right Arm] 143/85 Blood Pressure Mean [Right Arm] 104 Blood Pressure Source [Right Arm] Automatic Cuff Blood Pressure Position [Right Arm] Sitting 02 Sat by Pulse Oximetry 97 Oxygen Delivery Method Room Air Room Air Room Air - Lab Data Lab results reviewed: Yes: I reviewed the patient's lab results. Lab Results 05/14/18 19:37: WBC 13.5 H, RBC 4.47, Hgb 13.2, Hct 41.4, MCV 92.6, MCH 29.4, MCHC 31.8, RDW 12.4, Plt Count 454 H, MPV 6.8 L, Neut % (Auto) 82.6 H, Lymph % ( Auto) 9.9 L, [place] % (Auto) 5.2, Eos % (Auto) 1.7, Baso % (Auto) 0.6, Neut # ( Auto) 11.1 H, Lymph # (Auto) 1.3, [place] # (Auto) 0.7, Eos # (Auto) 0.2, Baso # ( Auto) 0.1 05/14/18 19:37: Sodium 138, Potassium 3.7, Chloride 103, Carbon Dioxide 30, Anion Gap 8.7, BUN 17, Creatinine 0.77, Estimated Creat Clear 51, Estimated GFR 72, Est GFR ( Amer) 87, Glucose 122 H, Calcium 9.0, Total Bilirubin 0.4, AST 11 L, ALT 18, Alkaline Phosphatase 72, Total Creatine Kinase 29, CK-MB (CK-2 ) 1.1, CK-MB (CK-2) Rel Index 3.8, Troponin I < 0.02, Total Protein 7.4, Albumin 3.3 L, Globulin 4.1 H, Albumin/Globulin Ratio 0.8 L 05/14/18 19:37: APTT 45.9 H 05/14/18 19:37: TSH 1.64 05/14/18 19:37: D-Dimer 947 H* 05/14/18 19:37: B-Natriuretic Peptide 88 05/14/18 19:37: PT 10.1, INR 0.98 05/14/18 21:15: Urine Color Yellow, Urine Appearance Clear, Urine pH 6.0, Ur Specific [place] 1.015, Urine Protein Negative, Urine Glucose (UA) Negative, Urine Ketones Negative, Urine Blood Negative, Urine Nitrate Negative, Urine Bilirubin Negative, Urine Urobilinogen 0.2, Ur Leukocyte Esterase Negative, Urine WBC Occasional, Ur Squamous Epith Cells Occasional, Ur Renal Epithelial Cell Occasional 05/14/18 21:15: Urine Opiates Screen Positive H, Urine Methadone Screen Negative , Ur Barbituates Screen Negative, Ur Phencyclidine Scrn Negative, Ur Amphetamines Screen Negative, U Benzodiazepines Scrn Negative, Urine Cocaine Screen Negative, U Marijuana (THC) Screen Negative 05/14/18 22:20: Lactate 0.2 L Result diagrams: 05/14/18 19:37 05/14/18 19:37 Orders (Tests/Meds): ED MEDICATIONS Generic Name Dose Route Start Last Admin Trade Name Freq PRN Reason Stop Dose Admin Acetaminophen 500 mg 05/14/18 22:17 05/15/18 00:08 Tylenol 500mg Tablet PO 06/13/18 22:16 500 mg Q4H PRN Administration pain Baclofen 10 mg 05/15/18 09:00 Lioresal 10mg Tablet PO 06/14/18 08:59 TID DRAKE Estradiol 1 mg 05/15/18 09:00 Estrace 1mg Tablet PO 06/14/18 08:59 DAILY DRAKE Hydromorphone HCl 1 mg 05/14/18 22:17 05/14/18 23:23 Dilaudid 2mg/Ml Syringe IV 06/13/18 22:16 1 mg Q4HP PRN Administration Severe Pain Sodium Chloride 1,000 mls @ 75 mls/hr 05/14/18 22:17 05/14/18 23:24 Sod Chlor 0.9% 1000ml Bag IV 06/13/18 22:16 75 mls/hr .[id number] DRAKE Administration Clindamycin Phosphate 900 mg/ 106 mls @ 100 mls/hr 05/14/18 22:17 05/15/18 00 :05 Sodium Chloride IV 05/28/18 22:16 100 mls/hr Q6H DRAKE Administration Protocol Sodium Chloride 25 mls @ 100 mls/hr 05/15/18 00:23 Sod Chlor 0.9% 25ml Bag IV 06/14/18 00:22 Q6HP PRN DILUTE PHENERGAN Iopamidol 75 ml 05/14/18 21:37 05/14/18 21:39 [id number]; 75ml Vial IV 05/14/18 21:38 75 ml ONCE ONE Administration Protocol Levothyroxine Sodium 50 mcg 05/15/18 09:00 Synthroid 50mcg (0.05mg) Tablet PO 06/14/18 08:59 DAILY DRAKE Metoprolol Tartrate 50 mg 05/15/18 09:00 Lopressor 50mg Tablet PO 06/14/18 08:59 BID DRAKE Morphine Sulfate 4 mg 05/15/18 00:20 05/15/18 02:54 Morphine 4mg/Ml Syringe IV 06/14/18 00:19 4 mg Q2HP PRN Administration SEVERE PAIN Nicotine 21 mg 05/14/18 22:17 Nicoderm 21mg/24hr Patch TD 06/13/18 22:16 DAILYP PRN Nicotine Cravings Non-Formulary Medication 10 mg 05/15/18 09:00 Pravastatin Sodium [Pravastatin Sodium] PO 06/14/18 08:59 DAILY DRAKE Ondansetron HCl 4 mg 05/14/18 22:17 Zofran 4mg/2ml Vial IV 06/13/18 22:16 Q4HP PRN Nausea Promethazine HCl 12.5 mg 05/14/18 22:17 Phenergan 25mg/Ml 1ml Vial IV 06/13/18 22:16 Q4HP PRN Nausea And Vomiting Promethazine HCl 25 mg 05/15/18 00:22 Phenergan 25mg/Ml 1ml Vial IV 06/14/18 00:21 Q6HP PRN Nausea And Vomiting Sodium Chloride 50 ml 05/14/18 21:37 05/14/18 21:40 Rad-Ns 50ml Vial IV 05/14/18 21:38 50 ml ONCE ONE Administration Sodium Chloride 25 ml 05/14/18 22:17 Sod Chlor 0.9% 25ml Bag IV 06/13/18 22:16 NEEDED PRN for Use with IV Promethazine Sodium Chloride 10 ml 05/14/18 22:17 Saline Flush 10ml Syringe IV 06/13/18 22:16 NEEDED PRN Maintain IV Site Discontinued Medications Generic Name Dose Route Start Last Admin Trade Name Freq PRN Reason Stop Dose Admin Enalaprilat 1.25 mg 05/14/18 20:21 05/14/18 21:56 Vasotec 2.5mg/2ml Vial IV 05/14/18 20:22 Not Given ONCE ONE Fentanyl Citrate 25 mcg 05/14/18 20:43 05/14/18 20:45 Fentanyl 250mcg/5ml Vial IV 05/14/18 20:44 25 mcg ONCE ONE Administration Fentanyl Citrate 25 mcg 05/14/18 20:53 05/14/18 21:01 Fentanyl 250mcg/5ml Vial IV 05/14/18 20:54 25 mcg ONCE ONE Administration Fentanyl Citrate 25 mcg 05/14/18 21:40 05/14/18 21:41 Fentanyl 250mcg/5ml Vial IV 05/14/18 21:41 25 mcg ONCE ONE Administration Sodium Chloride 1,000 mls @ 999 mls/hr 05/14/18 19:45 05/14/18 19:38 Sod Chlor 0.9% 1000ml Bag IV 05/14/18 20:45 999 mls/hr .Q1H1M DRAKE Administration Vancomycin HCl 1,500 mg/ 250 mls @ 125 mls/hr 05/14/18 20:53 05/14/18 21:01 Sodium Chloride IV 05/14/18 22:52 125 mls/hr ONCE ONE Administration Clindamycin Phosphate 900 mg/ 106 mls @ 106 mls/hr 05/14/18 21:07 05/15/18 00 :19 Sodium Chloride IV 05/14/18 21:08 Not Given ONCE ONE Protocol Metoprolol Tartrate 50 mg 05/14/18 19:52 05/14/18 19:53 Lopressor 50mg Tablet PO 05/14/18 19:53 50 mg ONCE ONE Administration Miscellaneous 1 each 05/14/18 21:15 05/14/18 21:03 Vancomycin Consult Request * 06/13/18 21:14 1 each CONSULT PHARMACY DRAKE Administration Morphine Sulfate 2 mg 05/14/18 20:19 05/14/18 20:23 Morphine 2mg/Ml Syringe IV 05/14/18 20:20 2 mg ONCE ONE Administration Ondansetron HCl 4 mg 05/14/18 19:44 05/14/18 19:46 Zofran 4mg/2ml Vial IV 05/14/18 19:45 4 mg ONCE ONE Administration Promethazine HCl 12.5 mg 05/14/18 20:24 05/14/18 20:26 Phenergan 25mg/Ml 1ml Vial IV 05/14/18 20:25 12.5 mg ONCE ONE Administration Sodium Chloride 25 ml 05/14/18 20:24 05/14/18 20:32 Sod Chlor 0.9% 25ml Bag IV 05/14/18 20:25 25 ml ONCE ONE Administration ORDERS Category Date Time Status CT Chest w/PE protocol [CT angio chest] Stat Cat Scan 05/14/18 20:[address] abdomen pelvis w con Stat Cat Scan 05/14/18 20:[address] cervical spine wo con Stat Cat Scan 05/14/18 18:[address] head/brain w con Stat Cat Scan 05/14/18 20:[address] head/brain wo con Stat Cat Scan 05/14/18 18:53 Taken Consult to Case Management [CONS] Routine Cons 05/14/18 22:17 Active Consult to On-Call Gen'l Surgeon [CONS] Routine Cons 05/14/18 22:17 Ordered Consult to Physician [CONS] Routine Cons 05/14/18 22:17 Ordered Oncology Consult [Consult to Hematology] [CONS] Routine Cons 05/14/18 22:33 Active Chest XR -- portable [XR chest portable] Stat Exams 05/14/18 18:53 Taken Pelvis XR 1-2 views [XR pelvis 1-2V] Stat Exams 05/14/18 18:56 Taken Blood Culture Stat Micro 05/14/18 22:20 Received Wound Culture and Gram Stain Stat Micro 05/14/18 20:45 Results - Radiology Data #1 Image(s): Chest Image Reviewed: Yes I reviewed the patient's radiology image Preliminary Findings: Abnormal JOAQUIM mass - CT Data CT Scan: Head, C-Spine, Abdomen, Pelvis, Chest Time Received: 21:[address] Reviewed: Yes: I have reviewed the patient's CT results, I discussed the CT results w/the radiologist Preliminary Findings: Abnormal Findings Narrative: CT head wo - neg CT head w/ dye - neg CT chest - JOAQUIM spiculated mass CT C spine - left upper lung mass spiculated mass CT abd/pelvis w/ iv dye - neg -all per Virtual radiology report - ECG Data Tracing #1 I reviewed this ECG and interpreted as documented below: Heart rate 88, no acute ischemic changes, no ectopies. ECG normal with no acute: arrhythmias, ischemia, conduction abnormalities, chamber hypertrophy Normal Sinus Rhythm: Yes - Physician Consults Physician Consulted: Dr Schumacher covering for Dr Garcia Time: 21:45 Reason -: Admission, Pt condition Comment/Response: Advised of patient's presentation findings, agreeable with admission, agreeable with management so far. Winsome requested to consult care management for hospice placement, pain management - Dr Hayward, as well as the general surgeon construction administrative assistant for possible pain pump removal/surgical evaluation of the infected wound. - Reevaluation(s) Time: 22:30 Reevaluation #1: Patient continues to remains nauseated, complaining this to complain with severe headache. Time: 23:15 Reevaluation #3: Patient's nausea improving, headache subsided. Time reevaluation 3: 00:10 Reevaluation #2: Vision laying in bed, less symptomatic. She appears medically stable. Lengthy discussion with family members, advised of all the results, will start requesting medical records since the CT scan head with contrast shows no brain mets, in contrast with the family's belief that she does have brain mets. Fall HPI - General Chief Complaint: Fall Stated Complaint: [id number] @0200 Fell, body pain Time Seen by Provider: 05/14/18 20:00 Mode of Arrival: Wheelchair Source of Information: Patient Limitations: No Limitations Description of Symptoms (Recalled from ER Triage Doc. by RN): Pt state got sick at 2 am and vomited in the bed, she went to the bathroom to clean her self. Pt states she fell and when she came to she was in the floor. Pt states she doesn' t know what she hit, how long she was in the floor. Pt is now stating she is weak, and hurting in her head, neck, back, and legs, and also states she is sick to her stomach. - History of Present Illness HPI Narrative: This is an 83-year-old female patient family members with a severe headache, onset earlier this morning, after having a syncopal episode around 2 AM. Patient has been unable to eat anything for the past 2 days, complains with nausea, denies any vomiting so far. According to the medical records the patient was diagnosed with lung cancer on which describes a "spiculated mass in the left upper lung". Patient stated that she underwent left lung biopsy at [facility] approximately 2 months ago, which confirmed the lung malignancy. Unfortunately she developed a postprocedure pneumothorax and she required to be hospitalized for a few days. She does not remember the name of her oncologist, but she recalls being told that she had a "brain metastases", and that her lung cancer is in stage III, and she only has 6 months to leave". 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 She underwent a pain pump implant approximately 6 weeks ago, by Dr. Hayward. Following the surgery she has developed some purulent drainage, so she returned to Dr. Hayward, who placed her on Cipro 500 mg PO BID, approximately 1 week ago. Patient survived cervical cancer, breast cancer, and most recently left parotid gland cancer. After being advised that she has stage III lung cancer at [facility] the patient declined any cancer treatment, including radiation, as well as chemotherapy, stating that she does not want to be resuscitated in case of end-of-life events. Since being placed on oral antibiotics the patient's wound continued to drain more and more. Patient advising that prior to arrival to the emergency room she just changed the dressing and that about an hour later the surgical bandage was soaked again in purulent drainage. MD complaint: fall - Related Data Home Medications Medication Instructions Recorded Confirmed Baclofen [Lioresal 10mg tablet] 10 mg PO TID 01/02/18 05/15/18 Estradiol 1 mg PO DAILY 01/02/18 05/15/18 Metoprolol Tartrate 50 mg PO BID 01/02/18 05/15/18 Naproxen 500 mg PO BID 01/02/18 05/15/18 Acetaminophen 500 mg PO Q4H PRN 05/14/18 05/14/18 Ciprofloxacin HCl [Ciprofloxacin 500 mg PO BID 05/14/18 05/15/18 500mg Tab] Ondansetron HCl 4 mg SL Q8 PRN 05/14/18 05/14/18 Levothyroxine Sodium 75 mcg PO DAILY 05/15/18 05/15/18 [Levothyroxine 75mcg (0.075mg) Tab] Allergies Allergy/AdvReac Type Severity Reaction Status Date / Time Tetanus Vaccines and Toxoid Allergy Unknown SWELLING Verified 05/14/18 18:53 [Tetanus Vaccines & Toxoid] [facility] History I have reviewed the patient's past medical history: Yes Medical History: Reports:: Arrhythmia, Cancer (tumor on lung *malignant*), Cerebrovascular Accident (No deficits), Hyperlipidemia, Hypertension Denies:: Diabetes Mellitus Type 1, Diabetes Mellitus Type 2, MRSA, Seizures Other Medical History: Reports: Hypothyroidism. Denies: Blood Transfusion Reaction Other Surgeries: Yes: Other (Hysterectomy, Back sx, Knee sx) Amputation: No Fractures: Yes - Social History Smoking Status: Light tobacco smoker Tobacco Type: cigarettes # Packs/Day (cigarettes): 1 Alcohol Intake: never Occupational Status: retired, disabled Housing: apartment Household Members: other - Psychiatric History Expresses thoughts of harming self/others: None Suicide Plan Description: No Plan Comment: Rheumatoid arthritis ROS Obtained: Yes All systems reviewed & no additional complaints, Yes Systems reviewed as appropriate & no additional complaints - Gastrointestinal Gastrointestingal: Reports: as per HPI, nausea - Neurologic Neurologic: Reports as per HPI, Reports headache(s), Reports syncope Physical Exam - General General appearance: alert, in distress (moderate) - Head Head exam: atraumatic, normocephalic, normal inspection - Eye Eye exam: Present: normal appearance, PERRL, EOMI, other (normal fundi) - Neck Neck exam: Present: normal inspection, full ROM, trachea midline, tenderness ( paraspinal muscle tenderness). Absent: meningismus, lymphadenopathy - Chest Chest inspection: Present: normal inspection, symmetric chest wall rise. Absent : tenderness - Respiratory Respiratory exam: Present: normal lung sounds bilaterally. Absent: respiratory distress - Cardiovascular Cardiovascular exam: Present: regular rate, normal rhythm. Absent: JVD - Abdominal Exam Abdominal exam: Present: soft, normal bowel sounds. Absent: distention, tenderness, guarding - Extremities Exam Extremities exam: Present: normal inspection, full ROM, normal capillary refill. Absent: calf tenderness - Back Exam Back exam: Present: full ROM, tenderness (Left lower lumbar area postsurgical site with dehiscent wound, draining pus, erythematous, tender, warm to touch.) - Neurological Exam Neurological exam: Present: alert, oriented X3, CN II-XII intact, normal gait. Absent: motor sensory deficit - Psychiatric Psychiatric exam: Present: depressed, flat affect - Skin Skin exam: Present: warm, dry, rash (Left lower lumbar area, post pain pump implant, with dehiscence surgical wound, draining pus, warm, under to touch, dressing soaked.)
[2018-05-14 20:33] LABS: INR 0.98 (0.9-1.1); Prothrombin Time 10.1 seconds (9.4-11.8)
[2018-05-14 21:24] LABS: Microscopic, Urine URINE MICROSCOPIC (MICROSCOPIC)
[2018-05-14 21:29] LABS: Appearance,Urine CLEAR (Clear); Bilirubin,Urine Negative (Negative); Blood, Urine Negative (Negative); Color,Urine YELLOW (Yellow); Glucose,Urine (UA) Negative (Negative); Ketones,Urine Negative (Negative); Leukocyte Esterase,Urine Negative (Negative); Protein,Urine Negative (Negative); Specific Gravity, Urine 1.015 (1.005-1.030); Urobilinogen,Urine 0.2 EU/dl (0.2)
[2018-05-14 21:31] LABS: Renal Epithelial Cells,Urine Occasional #/lpf (0); Squamous Epithelial Cell,Urine Occasional #/hpf (0-5); WBC,Urine Occasional #/hpf (0-3)
[2018-05-14 21:33] LABS: Amphetamine/Metha Screen,Urine Negative ng/mL (<1000); Barbiturates Screen,Urine Negative ng/mL (<200); Benzodiazepines Screen,Urine Negative ng/mL (<200); Cannabinoid Screen,Urine Negative ng/mL (<50); Cocaine Screen,Urine Negative ng/mL (<300); Methadone Screen,Urine Negative ng/mL (<300); Opiate Screen,Urine Positive ng/mL (<300); Phencyclidine Screen,Urine Negative ng/mL (<25)
--- NOTE | 2018-05-15 07:10 | Pharmacy Consult Notes ---
[facility] Pharmacy VTE Monitoring - Patient Demographics Admission date: 05/14/18 Report Date: 05/15/18 Time: 07:09 Allergies/Adverse Reactions: Patient Allergies Tetanus Vaccines and Toxoid [Tetanus Vaccines & Toxoid] Allergy (Unknown, Verified 05/14/18 18:53) SWELLING Height: 1.7 m Weight: 75.438 kg Patient Problems: Current Active Problems Deep incisional surgical site infection (Acute) Syncope (Acute) Lung cancer (Acute) Headache (Acute) Nausea (Acute) - VTE Risk Labs: VTE Related Lab Results Hgb 13.2 g/dL (12.2-16.2) 05/14/18 19:37 Hct 41.4 % (37.0-47.0) 05/14/18 19:37 Plt Count 454 K/mm3 (142-424) H 05/14/18 19:37 PT 10.1 seconds (9.4-11.8) 05/14/18 19:37 INR 0.98 (0.9-1.1) 05/14/18 19:37 APTT 45.9 seconds (23.6-34.0) H 05/14/18 19:37 BUN 17 mg/dL (7-18) 05/14/18 19:37 Creatinine 0.77 mg/dL (0.55-1.02) 05/14/18 19:37 Estimated Creat Clear 51 mL/min (0-300) 05/14/18 19:37 Was VTE Risk Assessment Performed: Yes VTE Score: 2 - Prophylaxis VTE Prophylaxis Ordered?: Yes Types of VTE Prophylaxis: TEDS Knee High Location of Applied Device: Bilateral Lower Extremeties - VTE Diagnosis Confirmed Treatment or plan recommended: Continue Current Treatment
--- NOTE | 2018-05-15 07:11 | History & Physical Report ---
*Admission Date: 05/14/18 *Chief complaint: Fall and pain *History of present illness: 83-year-old female with known lung cancer presented to the hospital with family after a fall at home which left her debilitated. She had an associated headache but is unsure of whether there was head trauma associated with her fall. Patient has known lung cancer for which she has yet to begin any treatment. Lung cancer was diagnosed in December. Patient tells me she has delayed treatment due to getting a pain pump placed locally for chronic pain associated with lumbar disease. Patient has been battling a wound infection at the surgical site of her pain pump. Her pain has become increasingly worse. She had a thorough workup in the emergency department. Please see ER documentation. This morning the patient contradicts some of the ER documentation. The patient tells me she plans on beginning chemotherapy and radiation as soon as her pain pump site heals although she is ready to have the pain pump removed if it is felt like that is necessary. Patient has been admitted and placed on broad-spectrum antibiotics. Consult has been placed to Dr. Hayward. [facility] History I have reviewed the patient's past medical history: Yes Medical History: Reports:: Arrhythmia, Cancer (tumor on lung *malignant*), Cerebrovascular Accident (No deficits), Hyperlipidemia, Hypertension Denies:: Diabetes Mellitus Type 1, Diabetes Mellitus Type 2, MRSA, Seizures Other Medical History: Reports: Hypothyroidism. Denies: Blood Transfusion Reaction Other Surgeries: Yes: Other (Hysterectomy, Back sx, Knee sx) Amputation: No Fractures: Yes - *Social History Educational Level: Completed High School Smoking Status: Light tobacco smoker Tobacco Type: cigarettes # Packs/Day (cigarettes): 1 Alcohol Intake: never Occupational Status: retired, disabled Housing: apartment Household Members: other - Psychiatric History Expresses thoughts of harming self/others: None Suicide Plan Description: No Plan *Family Hx:: Heart Attack, Hyperlipidemia Review of Systems - Review of Systems Review of systems:: pertinent systems reviewed and negative unless documented below - Constitutional Denies chills, Denies fatigue - *Cardiovascular Denies chest pain - *Respiratory Denies cough - *Musculoskeletal Reports joint pain, Reports back pain, Reports limited joint movement - *Neurologic Reports headache(s), Reports fainting Meds Home Medications Medication Instructions Recorded Confirmed Type Estradiol 1 mg PO DAILY 01/02/18 05/15/18 History Metoprolol Tartrate 50 mg PO BID 01/02/18 05/15/18 History Naproxen 500 mg PO BID 01/02/18 05/15/18 History RX: Baclofen [Lioresal 10mg tablet] 10 mg PO TID 01/02/18 05/15/18 History Ondansetron HCl 4 mg SL Q8 PRN 05/14/18 05/14/18 History RX: Acetaminophen 500 mg PO Q4H PRN 05/14/18 05/14/18 History RX: Ciprofloxacin HCl 500 mg PO BID 05/14/18 05/15/18 History [Ciprofloxacin 500mg Tab] Levothyroxine Sodium 75 mcg PO DAILY 05/15/18 05/15/18 History [Levothyroxine 75mcg (0.075mg) Tab] Allergies Allergy/AdvReac Type Severity Reaction Status Date / Time Tetanus Vaccines and Toxoid Allergy Unknown SWELLING Verified 05/14/18 18:53 [Tetanus Vaccines & Toxoid] Exam Vital signs and Labs for Last 24 Hours: Temp Pulse Resp BP Pulse Ox 99.2 F 85 17 153/77 94 L 05/14/18 23:22 05/14/18 23:22 05/14/18 23:22 05/14/18 23:22 05/14/18 23:22 Laboratory Results - last 24 hr 05/14/18 19:37: WBC 13.5 H, RBC 4.47, Hgb 13.2, Hct 41.4, MCV 92.6, MCH 29.4, MCHC 31.8, RDW 12.4, Plt Count 454 H, MPV 6.8 L, Neut % (Auto) 82.6 H, Lymph % ( Auto) 9.9 L, [place] % (Auto) 5.2, Eos % (Auto) 1.7, Baso % (Auto) 0.6, Neut # ( Auto) 11.1 H, Lymph # (Auto) 1.3, [place] # (Auto) 0.7, Eos # (Auto) 0.2, Baso # ( Auto) 0.1 05/14/18 19:37: Sodium 138, Potassium 3.7, Chloride 103, Carbon Dioxide 30, Anion Gap 8.7, BUN 17, Creatinine 0.77, Estimated Creat Clear 51, Estimated GFR 72, Est GFR ( Amer) 87, Glucose 122 H, Calcium 9.0, Total Bilirubin 0.4, AST 11 L, ALT 18, Alkaline Phosphatase 72, Total Creatine Kinase 29, CK-MB (CK-2 ) 1.1, CK-MB (CK-2) Rel Index 3.8, Troponin I < 0.02, Total Protein 7.4, Albumin 3.3 L, Globulin 4.1 H, Albumin/Globulin Ratio 0.8 L 05/14/18 19:37: APTT 45.9 H 05/14/18 19:37: TSH 1.64 05/14/18 19:37: D-Dimer 947 H* 05/14/18 19:37: B-Natriuretic Peptide 88 05/14/18 19:37: PT 10.1, INR 0.98 05/14/18 21:15: Urine Color Yellow, Urine Appearance Clear, Urine pH 6.0, Ur Specific [place] 1.015, Urine Protein Negative, Urine Glucose (UA) Negative, Urine Ketones Negative, Urine Blood Negative, Urine Nitrate Negative, Urine Bilirubin Negative, Urine Urobilinogen 0.2, Ur Leukocyte Esterase Negative, Urine WBC Occasional, Ur Squamous Epith Cells Occasional, Ur Renal Epithelial Cell Occasional 05/14/18 21:15: Urine Opiates Screen Positive H, Urine Methadone Screen Negative , Ur Barbituates Screen Negative, Ur Phencyclidine Scrn Negative, Ur Amphetamines Screen Negative, U Benzodiazepines Scrn Negative, Urine Cocaine Screen Negative, U Marijuana (THC) Screen Negative 05/14/18 22:20: Lactate 0.2 L I & O for Last 24 hours: Intake & Output 05/12/18 05/13/18 05/14/18 05/15/18 11:59 11:59 11:59 11:59 Intake Total 1100 / 1100 Output Total 100 / 100 Balance 1000 / 1000 Weight 166 lb 5 oz Microbiology Reports for the Last 24 Hours: Microbiology 05/14/18 20:45 Back - Abscess Gram Stain - Final 05/14/18 20:45 Back - Abscess Wound Culture - Preliminary Narrative: Patient appears uncomfortable. She is alert and oriented. She is lying diagonally across the bed with pillows supporting her back in her feet hanging down off of the bed. HEENT exam is grossly normal. Lungs are distant but clear to auscultation. Heart has a rapid rate and rhythm. Abdomen is soft. Skin exam reveals a moist surgical site in the left lower back. It is mildly warm to the touch. Surgical site is tender to touch. H&P: Result - Labs Labs: Short CBC 05/14/18 Range/Units 19:37 WBC 13.5 H (4.8-10.8) K/mm3 Hgb 13.2 (12.2-16.2) g/dL Hct 41.4 (37.0-47.0) % Plt Count 454 H (142-424) K/mm3 BMP 05/14/18 19:37 Sodium 138 Potassium 3.7 Chloride 103 Carbon Dioxide 30 BUN 17 Creatinine 0.77 Glucose 122 H Calcium 9.0 Cardiac Enzymes 05/14/18 Range/Units 19:37 Total Creatine Kinase 29 (26-192) U/L CK-MB (CK-2) 1.1 (0.0-3.6) ng/ml Troponin I < 0.02 (0.00-0.06) ng/ml Liver Function 05/14/18 Range/Units 19:37 Total Bilirubin 0.4 (0.2-1.0) mg/dL AST 11 L (15-37) U/L ALT 18 (12-78) U/L Alkaline Phosphatase 72 (46-116) U/L Albumin 3.3 L (3.4-5.0) gm/dL Urine 05/14/18 Range/Units 21:15 Urine Color Yellow (Yellow) Urine Appearance Clear (Clear) Urine pH 6.0 (5.0-8.5) Ur Specific [place] 1.015 (1.005-1.030) Urine Protein Negative (Negative) Urine Glucose (UA) Negative (Negative) Assessment and Plan (1) Surgical site infection Current visit: Yes Status: Acute Category: Medical Code(s): T81.4XXA - Infection following a procedure, initial encounter (2) Lung cancer Current visit: Yes Status: Acute Qualifiers: Laterality: left Lung location: upper lobe of lung Qualified Code(s): C34.12 - Malignant neoplasm of upper lobe, left bronchus or lung Category: Medical Code(s): C34.90 - Malignant neoplasm of unspecified part of unspecified bronchus or lung (3) Nausea Current visit: Yes Status: Acute Category: Medical Code(s): R11.0 - Nausea (4) Syncope Current visit: Yes Status: Acute Qualifiers: Syncope type: unspecified Qualified Code(s): R55 - Syncope and collapse Category: Medical Code(s): R55 - Syncope and collapse - Assessment and plan all Dx Assessment and Plan for all problems:: 1. Continue IV antibiotics. I do not believe the infection is deep as there are no signs of inflammatory changes on her CT scan. Await Dr. bowles consultation 2. I will see if I have any office notes regarding the patient's lung cancer. Patient's oncologist is at [place]. I will cancel the oncology consult in her orders
--- NOTE | 2018-05-15 09:45 | Pharmacy Consult Notes ---
- Pharmacy Consult Date: 05/15/18 Time: 09:33 Referring provider: DR. HAYWOOD Reason for Consult:: VANCOMYCIN DOSING Allergies and ADEs:: Allergies Allergy/AdvReac Type Severity Reaction Status Date / Time Tetanus Vaccines and Toxoid Allergy Unknown SWELLING Verified 05/14/18 18:53 [Tetanus Vaccines & Toxoid] Home Medications:: Home Medications Medication Instructions Recorded Confirmed Type Baclofen [Lioresal 10mg tablet] 10 mg PO TID 01/02/18 05/15/18 History Estradiol 1 mg PO DAILY 01/02/18 05/15/18 History Metoprolol Tartrate 50 mg PO BID 01/02/18 05/15/18 History Naproxen 500 mg PO BID 01/02/18 05/15/18 History Acetaminophen 500 mg PO Q4HP PRN 05/14/18 05/15/18 History Ciprofloxacin HCl [Ciprofloxacin 500 mg PO BID 05/14/18 05/15/18 History 500mg Tab] Ondansetron HCl 4 mg SL Q8H PRN 05/14/18 05/15/18 History Levothyroxine Sodium 75 mcg PO DAILY 05/15/18 05/15/18 History [Levothyroxine 75mcg (0.075mg) Tab] Height: 1.7 m Weight: 75.438 kg Laboratory Results:: Laboratory Results - last 24 hr 05/14/18 19:37: WBC 13.5 H, RBC 4.47, Hgb 13.2, Hct 41.4, MCV 92.6, MCH 29.4, MCHC 31.8, RDW 12.4, Plt Count 454 H, MPV 6.8 L, Neut % (Auto) 82.6 H, Lymph % ( Auto) 9.9 L, [place] % (Auto) 5.2, Eos % (Auto) 1.7, Baso % (Auto) 0.6, Neut # ( Auto) 11.1 H, Lymph # (Auto) 1.3, [place] # (Auto) 0.7, Eos # (Auto) 0.2, Baso # ( Auto) 0.1 05/14/18 19:37: Sodium 138, Potassium 3.7, Chloride 103, Carbon Dioxide 30, Anion Gap 8.7, BUN 17, Creatinine 0.77, Estimated Creat Clear 51, Estimated GFR 72, Est GFR ( Amer) 87, Glucose 122 H, Calcium 9.0, Total Bilirubin 0.4, AST 11 L, ALT 18, Alkaline Phosphatase 72, Total Creatine Kinase 29, CK-MB (CK-2 ) 1.1, CK-MB (CK-2) Rel Index 3.8, Troponin I < 0.02, Total Protein 7.4, Albumin 3.3 L, Globulin 4.1 H, Albumin/Globulin Ratio 0.8 L 05/14/18 19:37: APTT 45.9 H 05/14/18 19:37: TSH 1.64 05/14/18 19:37: D-Dimer 947 H* 05/14/18 19:37: B-Natriuretic Peptide 88 05/14/18 19:37: PT 10.1, INR 0.98 05/14/18 21:15: Urine Color Yellow, Urine Appearance Clear, Urine pH 6.0, Ur Specific [place] 1.015, Urine Protein Negative, Urine Glucose (UA) Negative, Urine Ketones Negative, Urine Blood Negative, Urine Nitrate Negative, Urine Bilirubin Negative, Urine Urobilinogen 0.2, Ur Leukocyte Esterase Negative, Urine WBC Occasional, Ur Squamous Epith Cells Occasional, Ur Renal Epithelial Cell Occasional 05/14/18 21:15: Urine Opiates Screen Positive H, Urine Methadone Screen Negative , Ur Barbituates Screen Negative, Ur Phencyclidine Scrn Negative, Ur Amphetamines Screen Negative, U Benzodiazepines Scrn Negative, Urine Cocaine Screen Negative, U Marijuana (THC) Screen Negative 05/14/18 22:20: Lactate 0.2 L Medical History: Reports:: Arrhythmia, Cancer (tumor on lung *malignant*), Cerebrovascular Accident (No deficits), Hyperlipidemia, Hypertension Denies:: Diabetes Mellitus Type 1, Diabetes Mellitus Type 2, MRSA, Seizures Assessment and Plan (1) Surgical site infection Current visit: Yes Status: Acute Category: Medical Code(s): T81.4XXA - Infection following a procedure, initial encounter (2) Lung cancer Current visit: Yes Status: Acute Qualifiers: Laterality: left Lung location: upper lobe of lung Qualified Code(s): C34.12 - Malignant neoplasm of upper lobe, left bronchus or lung Category: Medical Code(s): C34.90 - Malignant neoplasm of unspecified part of unspecified bronchus or lung (3) Nausea Current visit: Yes Status: Acute Category: Medical Code(s): R11.0 - Nausea (4) Syncope Current visit: Yes Status: Acute Qualifiers: Syncope type: unspecified Qualified Code(s): R55 - Syncope and collapse Category: Medical Code(s): R55 - Syncope and collapse - Assessment and plan all Dx Assessment and Plan for all problems:: BASED ON PATIENT FACTORS, RECOMMEND VANCOMYCIN 1500 MG IV ONCE, FOLLOWED BY VANCOMYCIN 1250 MG IV Q18H. PHARMACY WILL FOLLOW DAILY AND ADJUST APPROPRIATE.
--- NOTE | 2018-05-15 10:37 | Consult Report ---
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 She had an implanted intrathecal pain pump that was doing well for her. Patient had dehiscence of her incision [address] watson was consulted and try to salvage the pain pump by washing the pocket out and re-suturing. Patient has been on Cipro. Patient was seen in the office last week and had minimal drainage and no pain. Patient has had a recent fall she has purulent drainage from her intrathecal pain pump. No odor was noted. Patient is having some uncontrollable pain I do have some concern about possible compression fracture. Patient is being seen by an oncologist in [place] for stage IV cancer of the lung. Patient cultures were taken of the incision line. Patient also had blood cultures drawn. Patient is n.p.o. at this time. Patient has had a consultation in regard to surgery put in. I believe it would be beneficial to remove the pump at this time and allow for healing. We will also order thoracic and lumbar x-ray to determine if she has had any compression fractures. Patient states that her IV medication has helped with her pain control. Patient is to continue with this.
--- NOTE | 2018-05-16 06:49 | Progress Note ---
Subjective Narrative: Still with nausea and pain. Exam Vital signs and Labs for Last 24 Hours: Temp Pulse Resp BP Pulse Ox 98.5 F 81 18 144/65 98 05/16/18 04:00 05/16/18 04:00 05/16/18 04:00 05/16/18 04:00 05/16/18 04:00 I & O for Last 24 hours: Intake & Output 05/13/18 05/14/18 05/15/18 05/16/18 11:59 11:59 11:59 11:59 Intake Total 1920 / 1920 867 / 867 Output Total 300 / 300 450 / 450 Balance 1620 / 1620 417 / 417 Weight 166 lb 5 oz 166 lb 4.997 oz Microbiology Reports for the Last 24 Hours: Microbiology 05/14/18 20:45 Back - Abscess Gram Stain - Final 05/14/18 20:45 Back - Abscess Wound Culture - Preliminary Progress Note: A&P (1) Surgical site infection Status: Acute Current Visit: Yes (2) Lung cancer Status: Acute Current Visit: Yes (3) Nausea Status: Acute Current Visit: Yes (4) Syncope Status: Acute Current Visit: Yes Assessment and Plan for All Diagnoses:: Discussed with Dr. Hayward yesterday. Plan for removal of hardware today.
--- NOTE | 2018-05-16 07:02 | Progress Note ---
Internal Medicine - PN: Subj *Date: 05/16/18 *Time: 07:01 Interval history: Patient complains of headache and nausea. She is scheduled for removal of her pain pump later today. Exam Vital signs and Labs for Last 24 Hours: Temp Pulse Resp BP Pulse Ox 98.5 F 81 18 144/65 98 05/16/18 04:00 05/16/18 04:00 05/16/18 04:00 05/16/18 04:00 05/16/18 04:00 I & O for Last 24 hours: Intake & Output 05/13/18 05/14/18 05/15/18 05/16/18 11:59 11:59 11:59 11:59 Intake Total 1920 / 1920 867 / 867 Output Total 300 / 300 450 / 450 Balance 1620 / 1620 417 / 417 Weight 166 lb 5 oz 166 lb 4.997 oz Microbiology Reports for the Last 24 Hours: Microbiology 05/14/18 20:45 Back - Abscess Gram Stain - Final 05/14/18 20:45 Back - Abscess Wound Culture - Preliminary - Constitutional no acute distress - *Routine Respiratory Exam Present: CTA bilaterally - *Routine Cardiovascular Exam Present: RRR Assessment and Plan (1) Surgical site infection Current visit: Yes Status: Acute Category: Medical Code(s): T81.4XXA - Infection following a procedure, initial encounter (2) Lung cancer Current visit: Yes Status: Acute Qualifiers: Laterality: left Lung location: upper lobe of lung Qualified Code(s): C34.12 - Malignant neoplasm of upper lobe, left bronchus or lung Category: Medical Code(s): C34.90 - Malignant neoplasm of unspecified part of unspecified bronchus or lung (3) Nausea Current visit: Yes Status: Acute Category: Medical Code(s): R11.0 - Nausea (4) Syncope Current visit: Yes Status: Acute Qualifiers: Syncope type: unspecified Qualified Code(s): R55 - Syncope and collapse Category: Medical Code(s): R55 - Syncope and collapse (5) Fall at home Current visit: Yes Status: Acute Category: Medical Code(s): W19.XXXA - Unspecified fall, initial encounter; Y92.009 - Unspecified place in unspecified non-institutional (private) residence as the place of occurrence of the external cause (6) Chronic pain syndrome Current visit: Yes Status: Acute Category: Medical Code(s): G89.4 - Chronic pain syndrome - Assessment and plan all Dx Assessment and Plan for all problems:: Plan for removal of pain pump today. Mobilized the patient afterwards. Anticipate discharge tomorrow
--- NOTE | 2018-05-16 09:36 | Pharmacy Consult Notes ---
- Pharmacy Consult Date: 05/16/18 Time: 09:34 Referring provider: DR. HAYWOOD Reason for Consult:: VANCOMYCIN LEVEL AND DOSING INTERVAL CHANGE Allergies and ADEs:: Allergies Allergy/AdvReac Type Severity Reaction Status Date / Time Tetanus Vaccines and Toxoid Allergy Unknown SWELLING Verified 05/14/18 18:53 [Tetanus Vaccines & Toxoid] Home Medications:: Home Medications Medication Instructions Recorded Confirmed Type Baclofen [Lioresal 10mg tablet] 10 mg PO TID 01/02/18 05/15/18 History Estradiol 1 mg PO DAILY 01/02/18 05/15/18 History Metoprolol Tartrate 50 mg PO BID 01/02/18 05/15/18 History Naproxen 500 mg PO BID 01/02/18 05/15/18 History Acetaminophen 500 mg PO Q4HP PRN 05/14/18 05/15/18 History Ciprofloxacin HCl [Ciprofloxacin 500 mg PO BID 05/14/18 05/15/18 History 500mg Tab] Ondansetron HCl 4 mg SL Q8H PRN 05/14/18 05/15/18 History Levothyroxine Sodium 75 mcg PO DAILY 05/15/18 05/15/18 History [Levothyroxine 75mcg (0.075mg) Tab] Height: 1.7 m Weight: 75.438 kg Laboratory Results:: Laboratory Results - last 24 hr 05/16/18 08:35: Vancomycin Trough 6.2 L Medical History: Reports:: Arrhythmia, Cancer (tumor on lung *malignant*), Cerebrovascular Accident (No deficits), Hyperlipidemia, Hypertension Denies:: Diabetes Mellitus Type 1, Diabetes Mellitus Type 2, MRSA, Seizures Assessment and Plan (1) Surgical site infection Current visit: Yes Status: Acute Category: Medical Code(s): T81.4XXA - Infection following a procedure, initial encounter (2) Lung cancer Current visit: Yes Status: Acute Qualifiers: Laterality: left Lung location: upper lobe of lung Qualified Code(s): C34.12 - Malignant neoplasm of upper lobe, left bronchus or lung Category: Medical Code(s): C34.90 - Malignant neoplasm of unspecified part of unspecified bronchus or lung (3) Nausea Current visit: Yes Status: Acute Category: Medical Code(s): R11.0 - Nausea (4) Syncope Current visit: Yes Status: Acute Qualifiers: Syncope type: unspecified Qualified Code(s): R55 - Syncope and collapse Category: Medical Code(s): R55 - Syncope and collapse (5) Fall at home Current visit: Yes Status: Acute Category: Medical Code(s): W19.XXXA - Unspecified fall, initial encounter; Y92.009 - Unspecified place in unspecified non-institutional (private) residence as the place of occurrence of the external cause (6) Chronic pain syndrome Current visit: Yes Status: Acute Category: Medical Code(s): G89.4 - Chronic pain syndrome - Assessment and plan all Dx Assessment and Plan for all problems:: PATIENT'S VANCOMYCIN TROUGH LEVEL WAS 6.2 MCG/ML PRIOR TO THIRD DOSE. RECOMMEND CHANGING VANCOMYCIN 1250 MG Q18H TO Q12H AT THIS TIME. PHARMACY WILL FOLLOW DAILY AND ADJUST APPROPRIATE. NINA LUCAS, PHARMD
--- NOTE | 2018-05-16 14:12 | Operative Note ---
Date of procedure: 05/16/18 Pre-op Diagnosis:: Infected intrathecal pain pump Post-op Diagnosis:: Same Procedure performed:: Removal of infected hardware (infected intrathecal pain pump) Surgeon:: Juan Stafford MD Anesthesia: LOUISE Estimated blood loss (mL): 15 Clinical Note:: Patient is an 83-year-old white female who had intrathecal pain pump placed by Dr. Hayward and Dr. Fernando on 03/22/18. She had apparently had wound dehiscence and had the wound irrigated in re-closed. She was admitted and surgical consultation was obtained for evaluation of infected pump. She was found to have partial dehiscence of the wound with drainage of purulent fluid from the si side of the pain pump. The patient's case was discussed with Dr. Jason Hayward. Plan was made for removal of the intrathecal pain pump. Operative findings:: She had a intrathecal pain pump with overlying partial dehiscence of the tissues of the subcutaneous reservoir pocket.. Operative note:: Consent was obtained and patient was taken to the operating room. General anesthesia was induced. She was positioned in lateral position. The area was prepped and draped in standard surgical fashion. There was partial dehiscence and disruption of the previously placed sutures. These were removed and superficially underneath the suture was the pain pump hardware. The incision was opened somewhat additionally to allow for removal of the hardware. This was delivered through the wound. Traction was placed on the catheter. Small incision approximately 2 cm was made overlying the original incision for placement of the catheters. Blunt dissection was carried down through superficial subcutaneous tissues so as to not injure the catheters. Catheters were identified and were delivered from the intrathecal tunneling easily. There were 2 anchors securing the catheter in place secured to the subcutaneous tissues with 2-0 Prolene. These were removed. The pain pump with the fully intact catheter in the 2 anchors were removed in their entirety. Inspection of the intrathecal catheter tunneling incision revealed what appeared to be some clear CSF emanating from the catheter tunnel site. Several [id number] locking 3-0 Vicryl sutures were placed at the intrathecal catheter tunnel site. This wound was thoroughly irrigated. It was closed with several interrupted 2 -0 nylon vertical mattress sutures. Next the pain pump pocket was thoroughly irrigated with several liters of pulsatile saline irrigation. There was good hemostasis. The wound was packed with a moistened saline Kerlix gauze and clean dry sterile dressing was applied. Please note that the pain pump wound measured approximately 10 cm in length by 2 cm in width and approximately 2 cm in depth. There was approximately 2 cm undermining superiorly and 4 cm undermining inferiorly. There was 1-2 cm undermining laterally. Condition: stable Disposition: PACU Complications:: None immediately apparent
--- NOTE | 2018-05-16 14:22 | Progress Note ---
[facility] Anesthesia Checklist - Patient Identification Patient Identification: Arm Band - Structural Data Planned Operative Procedure/s: Removal of infected pain pump Consent for Planned Operative Procedure(s) Verified: Yes Verified Documents: History and Physical - NPO Status Verified Time NPO: 00:00 - Additional verifications Patient : No Anesthesia Reactions: No - Airway Assessment C-Spine Mobility Assessed: Yes TMJ Mobility Assessed: Yes Dentition: Dentures-good fit (Upper denture, lower partial) - Neurological Assessment Level of Consciousness: Awake Hx Seizures: No Numbness or tingling in extremities: No - Anesthesia Plan Anesthesia Risk discussed: Yes Anesthesia Plan: Verified ASA Class: III Anesthesia Type: General [facility] Anesthesia HX Medical History: Reports:: Arrhythmia, Cancer (tumor on lung *malignant*), Cerebrovascular Accident (No deficits), Hyperlipidemia, Hypertension Denies:: Diabetes Mellitus Type 1, Diabetes Mellitus Type 2, MRSA, Seizures Other Medical History: Reports: Hypothyroidism. Denies: Blood Transfusion Reaction Other Surgeries: Yes: Other (Hysterectomy, Back sx, Knee sx) Amputation: No Fractures: Yes *Family Hx:: Heart Attack, Hyperlipidemia
--- NOTE | 2018-05-16 14:24 | Progress Note ---
[facility] Anesthesia Record Part I Intake, IV Amount: 400 Estimated blood loss (mL): 15 Urine output (mL): 0 Blood Products used (#): none Blood Pressure: 107/63 SaO2: 96 Pulse Rate: 63 Respiratory Rate: 14 Temperature: 97.8 F Patient is:: Awake, Stable Stable to PACU at:: 14:12
--- NOTE | 2018-05-16 14:25 | Progress Note ---
[facility] Anesthesia Record Part II Discharge Time: 14:42 Destination: Medical Surgical Department PACU nurse assessment reviewed?: Yes Patient Condition:: Good Anesthesia Complications:: None
[2018-05-17 08:02] VITALS: BP 145/76
== END 2018-05-17 11:53 | disposition swing bed (61) ==
LOC: 2ND 18:37 → ER 18:37 → OBSVTOIN 22:55 → 2ND 23:00
PROVIDERS: ADMIT Internal Medicine Adolescent Medicine; ATTEND Family Medicine

== ENCOUNTER 2018-05-17 11:54 | Inpatient (IN) ==
--- NOTE | 2018-05-17 13:28 | Pharmacy Consult Notes ---
[facility] Pharmacy VTE Monitoring - Patient Demographics Admission date: 05/17/18 Report Date: 05/17/18 Time: 13:28 Allergies/Adverse Reactions: Patient Allergies Tetanus Vaccines and Toxoid [Tetanus Vaccines & Toxoid] Allergy (Unknown, Verified 05/14/18 18:53) SWELLING Height: 1.7 m Weight: 75.438 kg - VTE Risk Was VTE Risk Assessment Performed: Yes VTE Score: 6 VTE Risk Level: Moderate Risk - Prophylaxis VTE Prophylaxis Ordered?: Yes Types of VTE Prophylaxis: TEDS Knee High Location of Applied Device: Bilateral Lower Extremeties - VTE Diagnosis Confirmed Treatment or plan recommended: Continue Current Treatment
--- NOTE | 2018-05-18 07:01 | Progress Note ---
Subjective Patient reports: no new complaints, still having pain Exam Vital signs and Labs for Last 24 Hours: Temp Pulse Resp BP Pulse Ox 97.8 F 94 H 20 184/85 97 05/17/18 20:00 05/17/18 20:00 05/17/18 20:00 05/17/18 20:00 05/18/18 00:00 I & O for Last 24 hours: Intake & Output 05/15/18 05/16/18 05/17/18 05/18/18 11:59 11:59 11:59 11:59 Intake Total 1446 / 1446 Output Total 850 / 850 Balance 596 / 596 Weight 166 lb 4.997 oz 166 lb 4.997 oz - Constitutional no acute distress - *Routine Skin Exam Comments: wound with continued "clear" drainage base and margin clean with no spreading cellulitis Progress Note: A&P (1) Deep incisional surgical site infection Status: Acute Assessment and plan: stable s/p hardware removal continue current medical management of ongoing CSF leak and infection continue dressing changes Current Visit: No
--- NOTE | 2018-05-18 07:06 | Swing Bed Reports ---
[facility] Swing Bed H&P Swing Bed History and Physical: 83-year-old female admitted to swing bed on 05/17/2018 to complete a one-week course of Levaquin and cefepime for Pseudomonas wound infection. Patient was hospitalized from 09/19 to 05/17/18 with wound infection from previous surgical site where intrathecal pain pump had been placed. Patient underwent debridement of the wound and wound culture grew methicillin sensitive staph and Pseudomonas. Patient will need 1 week of IV antibiotics. Patient continues to complain of low back pain radiating down both legs right greater than left as well as headache and nausea. 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 During examination this morning the patient became nauseous and was witnessed dry heaving. HEENT: Pupils are reactive to light. Oropharynx is moist. Neck: No lymphadenopathy no carotid bruit Lungs: Clear to auscultation Heart: Regular rate and rhythm Abdomen: Soft and nontender Skin: Surgical site with wet-to-dry dressing Musculoskeletal: Patient has active range of motion in all extremities Neuro: Significant tremor this morning Assessment and plan: Surgical site infection with Pseudomonas and methicillin sensitive staph aureus Continue cefepime and Levaquin PT eval today Monitor headache closely Mental status: Average Rehab potential: Good Prognosis: Fair
--- NOTE | 2018-05-19 06:36 | Progress Note ---
Internal Medicine - PN: Subj *Date: 05/19/18 *Time: 06:34 Interval history: Patient continues to complain of headache and back pain. She has been out of bed very little due to the amount of pain she is in. I spoke with the patient' s nurse who indicated that she seemingly complains of more headache when she is upright than when she is supine. This also seems to trigger nausea. Exam Vital signs and Labs for Last 24 Hours: Temp Pulse Resp BP Pulse Ox 98.0 F 87 14 178/85 100 05/18/18 20:00 05/18/18 20:00 05/18/18 20:00 05/18/18 20:00 05/18/18 20:00 I & O for Last 24 hours: Intake & Output 05/16/18 05/17/18 05/18/18 05/19/18 11:59 11:59 11:59 11:59 Intake Total 2459 / 2459 1349 / 1349 Output Total 850 / 850 400 / 400 Balance 1609 / 1609 949 / 949 Weight 166 lb 4.997 oz 166 lb 4.997 oz Narrative: Patient is laying flat in bed. Overall I think she looks a little more alert and less distressed. Lungs are clear. Heart has a regular rate and rhythm. Assessment and Plan (1) Deep incisional surgical site infection Current visit: No Status: Acute Qualifiers: Encounter type: initial encounter Qualified Code(s): T81.4XXA - Infection following a procedure, initial encounter Category: Medical Code(s): T81.4XXA - Infection following a procedure, initial encounter (2) Headache Current visit: No Status: Acute Qualifiers: Headache type: tension-type Headache chronicity pattern: acute headache Intractability: not intractable Qualified Code(s): G44.209 - Tension-type headache, unspecified, not intractable Category: Medical Code(s): R51 - Headache (3) Lung cancer Current visit: No Status: Acute Qualifiers: Laterality: left Lung location: upper lobe of lung Qualified Code(s): C34.12 - Malignant neoplasm of upper lobe, left bronchus or lung Category: Medical Code(s): C34.90 - Malignant neoplasm of unspecified part of unspecified bronchus or lung (4) Pseudomonas aeruginosa infection Current visit: No Status: Acute Category: Medical Code(s): A49.8 - Other bacterial infections of unspecified site (5) Staphylococcal infection of skin Current visit: No Status: Acute Category: Medical Code(s): L08.9 - Local infection of the skin and subcutaneous tissue, unspecified; B95.8 - Unspecified staphylococcus as the cause of diseases classified elsewhere (6) Degenerative disc disease, lumbar Current visit: No Status: Chronic Category: Medical Code(s): M51.36 - Other intervertebral disc degeneration, lumbar region - Assessment and plan all Dx Assessment and Plan for all problems:: I believe the patient may be having spinal headaches. CSF fluid leak was seen during her surgical procedure to remove her pain pump. I am going to place a consult to anesthesiology for evaluation for a blood patch.
--- NOTE | 2018-05-20 08:03 | Progress Note ---
Internal Medicine - PN: Subj *Date: 05/20/18 *Time: 08:01 Interval history: Patient has no new complaints. She continues to have headache when sitting up. After discussion with anesthesia in pain management services yesterday it was felt like because of the patient's ongoing wound blood patch was not a viable option. This is understandable. Patient tells me she was able to sleep better overnight. Exam Vital signs and Labs for Last 24 Hours: Temp Pulse Resp BP Pulse Ox 98.2 F 72 14 148/66 100 05/19/18 20:30 05/19/18 20:30 05/19/18 20:30 05/19/18 20:30 05/19/18 20:30 I & O for Last 24 hours: Intake & Output 05/17/18 05/18/18 05/19/18 05/20/18 11:59 11:59 11:59 11:59 Intake Total 2609 / 2609 1349 / 1349 1374 / 1374 Output Total 850 / 850 400 / 400 450 / 450 Balance 1759 / 1759 949 / 949 924 / 924 Weight 166 lb 4.997 oz 166 lb 4.997 oz Narrative: Patient is awake and alert. Lungs are clear. Heart has a regular rate and rhythm. Wound examination reveals healthy-appearing tissues and no purulent or serous drainage is witnessed. Assessment and Plan (1) Deep incisional surgical site infection Current visit: No Status: Acute Qualifiers: Encounter type: initial encounter Qualified Code(s): T81.4XXA - Infection following a procedure, initial encounter Category: Medical Code(s): T81.4XXA - Infection following a procedure, initial encounter (2) Headache Current visit: No Status: Acute Qualifiers: Headache type: tension-type Headache chronicity pattern: acute headache Intractability: not intractable Qualified Code(s): G44.209 - Tension-type headache, unspecified, not intractable Category: Medical Code(s): R51 - Headache (3) Lung cancer Current visit: No Status: Acute Qualifiers: Laterality: left Lung location: upper lobe of lung Qualified Code(s): C34.12 - Malignant neoplasm of upper lobe, left bronchus or lung Category: Medical Code(s): C34.90 - Malignant neoplasm of unspecified part of unspecified bronchus or lung (4) Pseudomonas aeruginosa infection Current visit: No Status: Acute Category: Medical Code(s): A49.8 - Other bacterial infections of unspecified site (5) Staphylococcal infection of skin Current visit: No Status: Acute Category: Medical Code(s): L08.9 - Local infection of the skin and subcutaneous tissue, unspecified; B95.8 - Unspecified staphylococcus as the cause of diseases classified elsewhere (6) Degenerative disc disease, lumbar Current visit: No Status: Chronic Category: Medical Code(s): M51.36 - Other intervertebral disc degeneration, lumbar region - Assessment and plan all Dx Assessment and Plan for all problems:: Patient is going to continue to be intermittently ambulatory while taking breaks to be supine to help her spinal headache. Continue antibiotics. Patient is developed diarrhea so she will be given a probiotic and diarrhea panel has been ordered
--- NOTE | 2018-05-20 08:34 | Progress Note ---
Subjective Patient reports: no new complaints Narrative: Still with headache. Exam Vital signs and Labs for Last 24 Hours: Temp Pulse Resp BP Pulse Ox 98.2 F 72 14 148/66 100 05/19/18 20:30 05/19/18 20:30 05/19/18 20:30 05/19/18 20:30 05/19/18 20:30 Laboratory Results - last 24 hr 05/20/18 04:47: Stl Aeromonas (PCR) Not detected, Stl C. cayetanensis PCR Not detected, Stool Rotavirus (PCR) Not detected, Stl Adenov F 40/41 PCR Not detected, Stool Astrovirus (PCR) Not detected, Stool Campylobacter PCR Not detected, Stl C.difficile Tox PCR Not detected, Stool Cryptosporidium PCR Not detected, Stl E.coli Shiga Tox PCR Not detected, Stool E coli O157 PCR Not detected, Stl Enterotoxigenic E PCR Not detected, Stool EPEC (PCR) Not detected , Stool EAEC (PCR) Not detected, Stl E. histolytica PCR Not detected, Stool Giardia Lamblia PCR Not detected, Stool Salmonella PCR Not detected, Stool Sapovirus (PCR) Not detected, Stl P. shigelloides PCR Not detected, Stl Shigella /EIEC PCR Not detected, St Y.enterocolitica PCR Not detected, Stool Vibrio (PCR ) Not detected, Stl Vibrio cholerae PCR Not detected, Stl Norovirus GI/GII PCR Not detected I & O for Last 24 hours: Intake & Output 05/17/18 05/18/18 05/19/18 05/20/18 11:59 11:59 11:59 11:59 Intake Total 2609 / 2609 1349 / 1349 1374 / 1374 Output Total 850 / 850 400 / 400 450 / 450 Balance 1759 / 1759 949 / 949 924 / 924 Weight 166 lb 4.997 oz 166 lb 4.997 oz - *Routine Skin Exam Comments: Wound is clean with granulation tissue. Progress Note: A&P (1) Deep incisional surgical site infection Status: Acute Current Visit: No (2) Headache Status: Acute Current Visit: No (3) Lung cancer Status: Acute Current Visit: No (4) Pseudomonas aeruginosa infection Status: Acute Current Visit: No (5) Staphylococcal infection of skin Status: Acute Current Visit: No (6) Degenerative disc disease, lumbar Status: Chronic Current Visit: No
--- NOTE | 2018-05-20 12:02 | Progress Note ---
Internal Medicine - PN: Subj *Date: 05/20/18 *Time: 12:01 Exam Vital signs and Labs for Last 24 Hours: Temp Pulse Resp BP Pulse Ox 98.2 F 78 16 158/78 98 05/20/18 08:00 05/20/18 08:00 05/20/18 08:00 05/20/18 08:00 05/20/18 08:00 Laboratory Results - last 24 hr 05/20/18 04:47: Stl Aeromonas (PCR) Not detected, Stl C. cayetanensis PCR Not detected, Stool Rotavirus (PCR) Not detected, Stl Adenov F 40/41 PCR Not detected, Stool Astrovirus (PCR) Not detected, Stool Campylobacter PCR Not detected, Stl C.difficile Tox PCR Not detected, Stool Cryptosporidium PCR Not detected, Stl E.coli Shiga Tox PCR Not detected, Stool E coli O157 PCR Not detected, Stl Enterotoxigenic E PCR Not detected, Stool EPEC (PCR) Not detected , Stool EAEC (PCR) Not detected, Stl E. histolytica PCR Not detected, Stool Giardia Lamblia PCR Not detected, Stool Salmonella PCR Not detected, Stool Sapovirus (PCR) Not detected, Stl P. shigelloides PCR Not detected, Stl Shigella /EIEC PCR Not detected, St Y.enterocolitica PCR Not detected, Stool Vibrio (PCR ) Not detected, Stl Vibrio cholerae PCR Not detected, Stl Norovirus GI/GII PCR Not detected I & O for Last 24 hours: Intake & Output 05/17/18 05/18/18 05/19/18 05/20/18 23:59 23:59 23:59 23:59 Intake Total 2339 / 2339 1619 / 1619 681 / 681 843 / 843 Output Total 850 / 850 200 / 200 500 / 500 150 / 150 Balance 1489 / 1489 1419 / 1419 181 / 181 693 / 693 Weight 75.438 kg Assessment and Plan (1) Deep incisional surgical site infection Current visit: No Status: Acute Qualifiers: Encounter type: initial encounter Qualified Code(s): T81.4XXA - Infection following a procedure, initial encounter Category: Medical Code(s): T81.4XXA - Infection following a procedure, initial encounter (2) Headache Current visit: No Status: Acute Qualifiers: Headache type: tension-type Headache chronicity pattern: acute headache Intractability: not intractable Qualified Code(s): G44.209 - Tension-type headache, unspecified, not intractable Category: Medical Code(s): R51 - Headache (3) Lung cancer Current visit: No Status: Acute Qualifiers: Laterality: left Lung location: upper lobe of lung Qualified Code(s): C34.12 - Malignant neoplasm of upper lobe, left bronchus or lung Category: Medical Code(s): C34.90 - Malignant neoplasm of unspecified part of unspecified bronchus or lung (4) Pseudomonas aeruginosa infection Current visit: No Status: Acute Category: Medical Code(s): A49.8 - Other bacterial infections of unspecified site (5) Staphylococcal infection of skin Current visit: No Status: Acute Category: Medical Code(s): L08.9 - Local infection of the skin and subcutaneous tissue, unspecified; B95.8 - Unspecified staphylococcus as the cause of diseases classified elsewhere (6) Degenerative disc disease, lumbar Current visit: No Status: Chronic Category: Medical Code(s): M51.36 - Other intervertebral disc degeneration, lumbar region The patient's infection will respond to the chosen ABx?: Yes Is the patient receiving the right drug, dose, and route?: Yes Could a more targeted ABx be ordered?: No (METHICILLIN SENSITIVE STAPH)
--- NOTE | 2018-05-21 08:54 | Progress Note ---
Subjective Patient reports: no new complaints Exam Vital signs and Labs for Last 24 Hours: Temp Pulse Resp BP Pulse Ox 98.0 F 83 16 148/86 97 05/21/18 07:26 05/21/18 07:26 05/21/18 07:26 05/21/18 07:26 05/21/18 07:26 I & O for Last 24 hours: Intake & Output 05/18/18 05/19/18 05/20/18 05/21/18 11:59 11:59 11:59 11:59 Intake Total 2609 / 2609 1499 / 1499 1374 / 1374 880 / 880 Output Total 850 / 850 400 / 400 450 / 450 50 / 50 Balance 1759 / 1759 1099 / 1099 924 / 924 830 / 830 Weight 166 lb 4.997 oz - Constitutional no acute distress Comments: Resting Progress Note: A&P (1) Deep incisional surgical site infection Status: Acute Current Visit: No (2) Headache Status: Acute Current Visit: No (3) Lung cancer Status: Acute Current Visit: No (4) Pseudomonas aeruginosa infection Status: Acute Current Visit: No (5) Staphylococcal infection of skin Status: Acute Current Visit: No (6) Degenerative disc disease, lumbar Status: Chronic Current Visit: No Assessment and Plan for All Diagnoses:: Continue current care
--- NOTE | 2018-05-21 08:58 | Progress Note ---
Internal Medicine - PN: Subj *Date: 05/21/18 *Time: 08:57 Exam Vital signs and Labs for Last 24 Hours: Temp Pulse Resp BP Pulse Ox 98.0 F 83 16 148/86 97 05/21/18 07:26 05/21/18 07:26 05/21/18 07:26 05/21/18 07:26 05/21/18 07:26 I & O for Last 24 hours: Intake & Output 05/18/18 05/19/18 05/20/18 05/21/18 23:59 23:59 23:59 23:59 Intake Total 1619 / 1619 681 / 681 1323 / 1323 400 / 400 Output Total 200 / 200 500 / 500 200 / 200 Balance 1419 / 1419 181 / 181 1123 / 1123 400 / 400 Assessment and Plan (1) Deep incisional surgical site infection Current visit: No Status: Acute Qualifiers: Encounter type: initial encounter Qualified Code(s): T81.4XXA - Infection following a procedure, initial encounter Category: Medical Code(s): T81.4XXA - Infection following a procedure, initial encounter (2) Headache Current visit: No Status: Acute Qualifiers: Headache type: tension-type Headache chronicity pattern: acute headache Intractability: not intractable Qualified Code(s): G44.209 - Tension-type headache, unspecified, not intractable Category: Medical Code(s): R51 - Headache (3) Lung cancer Current visit: No Status: Acute Qualifiers: Laterality: left Lung location: upper lobe of lung Qualified Code(s): C34.12 - Malignant neoplasm of upper lobe, left bronchus or lung Category: Medical Code(s): C34.90 - Malignant neoplasm of unspecified part of unspecified bronchus or lung (4) Pseudomonas aeruginosa infection Current visit: No Status: Acute Category: Medical Code(s): A49.8 - Other bacterial infections of unspecified site (5) Staphylococcal infection of skin Current visit: No Status: Acute Category: Medical Code(s): L08.9 - Local infection of the skin and subcutaneous tissue, unspecified; B95.8 - Unspecified staphylococcus as the cause of diseases classified elsewhere (6) Degenerative disc disease, lumbar Current visit: No Status: Chronic Category: Medical Code(s): M51.36 - Other intervertebral disc degeneration, lumbar region The patient's infection will respond to the chosen ABx?: Yes Is the patient receiving the right drug, dose, and route?: Yes Could a more targeted ABx be ordered?: No (P AERUGINOSA SENSITIVE TO LEVAQUIN)
--- NOTE | 2018-05-22 08:26 | Progress Note ---
Subjective Patient reports: feels better Narrative: Feeling much better. Less headache. Exam Vital signs and Labs for Last 24 Hours: Temp Pulse Resp BP Pulse Ox 98.9 F 84 16 160/79 94 L 05/22/18 07:51 05/22/18 07:51 05/22/18 07:51 05/22/18 07:51 05/22/18 07:51 I & O for Last 24 hours: Intake & Output 05/19/18 05/20/18 05/21/18 05/22/18 11:59 11:59 11:59 11:59 Intake Total 1499 / 1499 1524 / 1524 880 / 880 120 / 120 Output Total 400 / 400 450 / 450 50 / 50 400 / 400 Balance 1099 / 1099 1074 / 1074 830 / 830 -280 / -280 - *Routine Skin Exam Comments: Wound clean Progress Note: A&P (1) Deep incisional surgical site infection Status: Acute Current Visit: No (2) Headache Status: Acute Current Visit: No (3) Lung cancer Status: Acute Current Visit: No (4) Pseudomonas aeruginosa infection Status: Acute Current Visit: No (5) Staphylococcal infection of skin Status: Acute Current Visit: No (6) Degenerative disc disease, lumbar Status: Chronic Current Visit: No Assessment and Plan for All Diagnoses:: Probable discharge home with home health soon.
--- NOTE | 2018-05-23 07:18 | Discharge Summary ---
General - General Admission date:: 05/17/18 Discharge date: 05/23/18 HPI HPI: 83-year-old female admitted to swing bed to treat a wound infection from an intrathecal pain pump that required removal due to infection. Cultures grew Pseudomonas which required dual therapy with intravenous cefepime and Levaquin. Hospital Course Hospital Course: Patient was placed on intravenous cefepime and Levaquin and she had wet-to-dry dressings done daily to the subcutaneous pocket that had been created for her pain pump. Wound had excellent response to this therapy. At discharge she will continue once daily wet-to-dry dressings. Home health will be arranged. Patient will follow-up with Dr. Stafford in 1. Patient suffers from chronic back pain. At removal of the intrathecal pain pump a CSF fluid leak was seen. Patient did have spinal headaches during her entire stay in a swing bed although they improved a little each day with rest and patient laying in the supine position with compression over the intrathecal pain pump site. Patient initially given Dilaudid for her pain postoperatively but was gradually transitioned to oral hydrocodone and this is what will be used to control her pain at discharge. Headaches responded to Fioricet and she will also be given a prescription for this medication. She has been counseled about acetaminophen overdose. Initially with her spinal headache consideration of a blood patch was brought up but it was felt to risky due to the patient's ongoing wound infection. Dr. leija was contacted and recommended neurosurgical evaluation if symptoms did not improve. Patient did show improvement and at the same time when neurosurgical evaluation was brought up she declined choosing to give the spinal headache chance to resolve on its own. She will be discharged home with hydrocodone and Fioricet. She will follow-up with Dr. leija as an outpatient. Patient also has lung cancer and she will follow-up with her oncologist in the near future. Objective Vital signs: Temp Pulse Resp BP Pulse Ox 98.8 F 82 20 146/69 95 05/22/18 20:00 05/22/18 20:00 05/22/18 20:00 05/22/18 20:00 05/22/18 20:00 DS: Diagnosis - Discharge Diagnosis (1) Deep incisional surgical site infection Status: Acute (2) Headache Status: Acute (3) Lung cancer Status: Acute (4) Pseudomonas aeruginosa infection Status: Acute (5) Staphylococcal infection of skin Status: Acute (6) Degenerative disc disease, lumbar Status: Chronic Discharge Plan - Patient Discharge Instructions ACTIVITY: Continue current activity DIET: continue same diet - Follow up Plan Follow up with: Juan Stafford MD [Staff Physician] - Jason Hayward MD [Staff Physician] - Disposition: Home, Self-[facility] Medications: Home Medications Medication Instructions Recorded Confirmed Type Baclofen [Lioresal 10mg tablet] 10 mg PO TID 01/02/18 05/17/18 History Estradiol 1 mg PO DAILY 01/02/18 05/17/18 History Metoprolol Tartrate 50 mg PO BID 01/02/18 05/17/18 History Naproxen 500 mg PO BID 01/02/18 05/17/18 History Acetaminophen 500 mg PO Q4HP PRN 05/14/18 05/17/18 History Ciprofloxacin HCl [Ciprofloxacin 500 mg PO BID 05/14/18 05/17/18 History 500mg Tab] Levothyroxine Sodium 50 mcg PO DAILY 05/17/18 05/17/18 History [Levothyroxine 50mcg (0.05mg) Tab] Prescriptions/Medication Reconciliation: New Butalb/Acetaminophen/Caffeine [Fiorcet Tablet] 2 each PO Q6HP PRN #30 tab PRN Reason: Headache Hydrocod/Acet 5/325 mg [[place] 5/325mg tablet] 1 tab PO Q6HP PRN #30 tab PRN Reason: Breakthru Moderate Pain Nystatin [Nystatin Susp 500,000 Units/5mL Udc] 500,000 unit PO QID #120 udc Continue Estradiol 1 mg PO DAILY Baclofen [Lioresal 10mg tablet] 10 mg PO TID Metoprolol Tartrate 50 mg PO BID Acetaminophen 500 mg PO Q4HP PRN PRN Reason: PAIN Levothyroxine Sodium [Levothyroxine 50mcg (0.05mg) Tab] 50 mcg PO DAILY Ondansetron HCl 4 mg SL Q8H PRN #30 tab PRN Reason: Nausea Discontinued Naproxen 500 mg PO BID Ciprofloxacin HCl [Ciprofloxacin 500mg Tab] 500 mg PO BID
== END 2018-05-23 15:25 | disposition home or self-care (01) ==
LOC: 2ND 11:54
PROVIDERS: ADMIT Family Medicine; ATTEND Family Medicine
CPT/HCPCS: 87507; 94761; 97163; J1956; J2405

== ENCOUNTER → 2018-05-29 11:42 | Outpatient (POV) | payer MEDICARE, BC, SELFPAY ==
[2018-05-29 12:01] VITALS: BP 174/89; PULSE 89; RESP 18; O2SAT 98; BMI 24.6
--- NOTE | 2018-05-29 12:13 | P.CONS_ITS ---
[facility] Pain Management SOAP Note Subjective:: She is a pleasant 83-year-old white female who presents today for follow-up after removal of her intrathecal pain pump. Patient had an infection in her intrathecal pain pump area. Patient was brought to the hospital and it was removed. Patient is nauseous today. Patient has been taking care of by her granddaughter. Patient has an open wound that is being packed wet-to-dry. Patient states her pain is tolerable at this time. 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 Patient states she is unable to do chemo till this wound heals. She rates her pain a 6 out of 10 today. ROS General: no recent weight change, no fever, no sleep disturbances Respiratory: no cough, no shortness of air, no recurring pulmonary infections Cardiovascular/Peripheral Vascular: No chest pain, No palpitations, no edema, no shortness of breath. Gastrointestinal: no incontinence, nausea Genitourinary: Hesitancy at times Musculoskeletal: Back pain Psychiatric: normal mood/ affect Neurological: [denies weakness in extremities], [denies balance issues] Objective:: Physical Exam General: Alert and oriented x3, no acute distress, pleasant and cooperative, [on room air] Lungs: Resps E/U, Symmetrical chest expansion, Eyes: PERRL Musculoskeletal: Flexion and extension of lumbar spine somewhat guarded secondary to pain, deep tendon reflexes normal, strength in upper and lower extremities [5/5], [abnormal gait noted] Neurological: speech clear, rubber cutting machine tender equal, no gross sensory deficits Assessment:: Degenerative disc disease lumbar spine with lumbar radiculopathy symptoms Plan:: I would like to see the patient back in 2 or 3 weeks to continue to monitor her healing process. Patient's been instructed to call office if she needs anything prior to next visit. This note was dictated using voice recognition software and may contain errors or omissions
== END ==
PROVIDERS: Family Provider Nurse Practitioner Family; PCP Nurse Practitioner Family; Visit Provider Clinical Nurse Specialist Family Health
DX: M51.16 Intervertebral disc disorders with radiculopathy, lumbar region (principal); C79.51 Secondary malignant neoplasm of bone
CPT/HCPCS: 99213

== ENCOUNTER → 2018-06-12 11:32 | Outpatient (POV) | payer MEDICARE, BC, SELFPAY ==
[2018-06-12 12:11] VITALS: BP 105/76; PULSE 70; RESP 18; O2SAT 98; BMI 23.0
--- NOTE | 2018-06-12 12:47 | P.CONS_ITS ---
[facility] Pain Management SOAP Note Subjective:: Patient is a pleasant 83-year-old white female who presents today for follow-up after removal of her intrathecal pain pump. Patient had an infection of her intrathecal pain pump area patient had it removed. Patient is still having the wound packed. Patient was having nausea however that has passed. Patient is trying to get stronger. Patient is still under the surgeon's care at this time. Patient has not been to her oncologist however she has been told that her cancer has spread to her bones and there is not much they can do for her. Patient states she is unable to do chemo. Patient rates her pain a 6 out of 10 today. Patient states her biggest problem is trying to sleep. Patient tried some trazodone however she states it made her heart race. ROS General: no recent weight change, no fever, no sleep disturbances Respiratory: no cough, no shortness of air, no recurring pulmonary infections Cardiovascular/Peripheral Vascular: No chest pain, No palpitations, no edema, no shortness of breath. Gastrointestinal: no incontinence, normal bowel movements reported Genitourinary: no incontinence Musculoskeletal: Back pain Psychiatric: normal mood/ affect Neurological: [denies weakness in extremities], [denies balance issues] Objective:: Physical Exam General: Alert and oriented x3, no acute distress, pleasant and cooperative, [on room air] Lungs: Resps E/U, Symmetrical chest expansion, [CTA bilateral] Eyes: PERRL Musculoskeletal: Flexion and extension of lumbar spine somewhat guarded secondary to pain, deep tendon reflexes normal, strength in upper and lower extremities [5/5], [abnormal gait noted] Neurological: speech clear, veterinary virus serum inspector equal, no gross sensory deficits Assessment:: degenerative disc disease lumbar spine with lumbar radiculopathy symptoms Plan:: I will see the patient back in 2 months. We will start her on gabapentin 100 mg time to see if this helps her sleep. Patient is uninterested in a new pump at this time and I believe that that is appropriate. We will see her back in 2 months and reassess her symptoms at that time. This note was dictated using voice recognition software and may contain errors or omissions
== END ==
PROVIDERS: Family Provider Nurse Practitioner Family; PCP Nurse Practitioner Family; Visit Provider Clinical Nurse Specialist Family Health
DX: M51.16 Intervertebral disc disorders with radiculopathy, lumbar region (principal)
CPT/HCPCS: 99213

== ENCOUNTER → 2018-08-07 10:28 | Outpatient (POV) | payer MEDICARE, BC, SELFPAY ==
[2018-08-07 11:01] VITALS: BP 138/78; PULSE 84; RESP 18; O2SAT 97; BMI 24.5
--- NOTE | 2018-08-07 11:08 | HMH.PAINSOAP ---
[facility] Pain Management SOAP Note Subjective:: Patient is a pleasant 83-year-old white female who presents today for follow-up. Patient had a removal of her intrathecal pain pump due to infection. Patient still has a wound that is being packed. Patient is otherwise doing well she rates her pain a 3 out of 10 when she is not doing anything. Patient is having some increased pain. Patient has an oncologist however she is unable to do any treatments until her wound is healed. Patient is having difficulty sleeping. ROS General: no recent weight change, no fever, no sleep disturbances Respiratory: no cough, no shortness of air, no recurring pulmonary infections Cardiovascular/Peripheral Vascular: No chest pain, No palpitations, no edema, no shortness of breath. Gastrointestinal: no incontinence, normal bowel movements reported Genitourinary: no incontinence Musculoskeletal: Back pain Psychiatric: normal mood/ affect Neurological: [denies weakness in extremities], [denies balance issues] Objective:: Physical Exam General: Alert and oriented x3, no acute distress, pleasant and cooperative, [on room air] Lungs: Resps E/U, Symmetrical chest expansion, Eyes: PERRL Musculoskeletal: Flexion and extension of lumbar spine somewhat guarded secondary to pain, deep tendon reflexes normal, strength in upper and lower extremities [5/5], [abnormal gait noted] Neurological: speech clear, petroleum plant operator equal, no gross sensory deficits Assessment:: Degenerative disc disease lumbar spine with lumbar radiculopathy symptoms Plan:: I will see the patient back in 1 month. We will try her on tramadol 50 mg 1 p.o. 3 times daily as needed and Cymbalta 30 mg at nighttime. Patient's been instructed to call the office if she has any issues with these medications. I will follow-up with the patient in 1 month. This note was dictated using voice recognition software and may contain errors or omissions
== END ==
PROVIDERS: PCP Family Medicine; Visit Provider Clinical Nurse Specialist Family Health
DX: M51.16 Intervertebral disc disorders with radiculopathy, lumbar region (principal)
CPT/HCPCS: 99213

== ENCOUNTER → 2018-09-04 09:45 | Outpatient (POV) | payer MEDICARE, BC, SELFPAY ==
[2018-09-04 10:03] VITALS: BP 102/57; PULSE 68; RESP 18; O2SAT 98; BMI 25.0
--- NOTE | 2018-09-04 10:09 | HMH.PAINSOAP ---
[facility] Pain Management SOAP Note Subjective:: Is a pleasant 83-year-old white female who presents today for follow-up. Patient had intrathecal pain pump however it was removed due to infection. Patient was then found to have cancer. Patient has been seeing a surgeon since the pump was removed. Patient's wound has healed well. Patient states that she is doing well today. She rates her pain a 5 out of 10 today. We started her on tramadol 50 mg p.o. 3 times daily. Patient states she is just taking it at night this time however is doing significantly well for her. Patient and I had a long discussion that she can take this in the daytime as well to help with getting around. Patient is going to go see the [facility] to move forward with her treatments. Patient denies side effects to the medication. Patient's GONZALES reviewed and appropriate. Patient is also utilizing bracing to help with her function now. ROS General: no recent weight change, no fever, no sleep disturbances Respiratory: no cough, no shortness of air, no recurring pulmonary infections Cardiovascular/Peripheral Vascular: No chest pain, No palpitations, no edema, no shortness of breath. Gastrointestinal: no incontinence, normal bowel movements reported Genitourinary: no incontinence Musculoskeletal: Back pain Psychiatric: normal mood/ affect Neurological: [denies weakness in extremities], [denies balance issues] Objective:: Physical Exam General: Alert and oriented x3, no acute distress, pleasant and cooperative, [on room air] Lungs: Resps E/U, Symmetrical chest expansion, Eyes: PERRL Musculoskeletal: Flexion and extension of lumbar spine somewhat guarded secondary to pain, deep tendon reflexes normal, strength in upper and lower extremities [5/5], [abnormal gait noted] Neurological: speech clear, hydraulic spinner equal, no gross sensory deficits Assessment:: Degenerative disc disease lumbar spine with lumbar radiculopathy Plan:: We will see the patient back in 2 months. We will refill her tramadol 50 mg 1 p.o. 3 times daily. Patient's been a call our office if she has any issues prior to her next appointment. This note was dictated using voice recognition software and may contain errors or omissions
--- NOTE | 2018-09-04 10:13 | P.CONS_ITS ---
[facility] Pain Management SOAP Note Subjective:: Is a pleasant 83-year-old white female who presents today for follow-up. Patient had intrathecal pain pump however it was removed due to infection. Patient was then found to have cancer. Patient has been seeing a surgeon since the pump was removed. Patient's wound has healed well. Patient states that she is doing well today. She rates her pain a 5 out of 10 today. We started her on tramadol 50 mg p.o. 3 times daily. Patient states she is just taking it at night this time however is doing significantly well for her. Patient and I had a long discussion that she can take this in the daytime as well to help with getting around. Patient is going to go see the [facility] to move forward with her treatments. Patient denies side effects to the medication. Patient's GONZALES reviewed and appropriate. Patient is also utilizing bracing to help with her function now. ROS General: no recent weight change, no fever, no sleep disturbances Respiratory: no cough, no shortness of air, no recurring pulmonary infections Cardiovascular/Peripheral Vascular: No chest pain, No palpitations, no edema, no shortness of breath. Gastrointestinal: no incontinence, normal bowel movements reported Genitourinary: no incontinence Musculoskeletal: Back pain Psychiatric: normal mood/ affect Neurological: [denies weakness in extremities], [denies balance issues] Objective:: Physical Exam General: Alert and oriented x3, no acute distress, pleasant and cooperative, [on room air] Lungs: Resps E/U, Symmetrical chest expansion, Eyes: PERRL Musculoskeletal: Flexion and extension of lumbar spine somewhat guarded secondary to pain, deep tendon reflexes normal, strength in upper and lower extremities [5/5], [abnormal gait noted] Neurological: speech clear, insights strategist equal, no gross sensory deficits Assessment:: Degenerative disc disease lumbar spine with lumbar radiculopathy Plan:: We will see the patient back in 2 months. We will refill her tramadol 50 mg 1 p.o. 3 times daily. Patient's been a call our office if she has any issues prior to her next appointment. This note was dictated using voice recognition software and may contain errors or omissions
== END ==
PROVIDERS: PCP Family Medicine; Visit Provider Clinical Nurse Specialist Family Health
DX: M51.16 Intervertebral disc disorders with radiculopathy, lumbar region (principal)
CPT/HCPCS: 99213

== ENCOUNTER → 2018-11-06 11:03 | Outpatient (POV) | payer MEDICARE, BC, SELFPAY ==
[2018-11-06 11:53] VITALS: BP 105/58; PULSE 73; RESP 18; O2SAT 98; BMI 23.9
--- NOTE | 2018-11-06 12:16 | HMH.PAINSOAP ---
[facility] Pain Management SOAP Note Subjective:: Patient is a pleasant 83-year-old white female who presents today for follow-up. She had an intrathecal pain pump however it was removed due to infection of the pocket. Patient was found to have cancer. She has been seeing a surgeon since the pump was removed and has been cleared the wound has healed well. Patient is currently on tramadol 50 mg 1 p.o. 3 times daily. Patient is not interested in pursuing another intrathecal pain pump. She is also not interested in more medication. Patient would like to potentially do some epidural injections to help with her pain. Patient has had these in the past. She is currently not on any anticoagulation therapy. She is currently does not have any active infections. She rates her pain today a 6 out of 10 ROS General: no recent weight change, no fever, no sleep disturbances Respiratory: no cough, no shortness of air, no recurring pulmonary infections Cardiovascular/Peripheral Vascular: No chest pain, No palpitations, no edema, no shortness of breath. Gastrointestinal: no incontinence, normal bowel movements reported Genitourinary: no incontinence Musculoskeletal: Back pain, leg pain Psychiatric: normal mood/ affect Neurological: [denies weakness in extremities], [denies balance issues] Objective:: Physical Exam General: Alert and oriented x3, no acute distress, pleasant and cooperative, [on room air] Lungs: Resps E/U, Symmetrical chest expansion, Eyes: PERRL Musculoskeletal: Flexion and extension of lumbar spine somewhat guarded secondary to pain, deep tendon reflexes normal, strength in upper and lower extremities [5/5], [abnormal gait noted] Neurological: speech clear, player development manager equal, no gross sensory deficits Assessment:: Degenerative disc disease lumbar spine with lumbar radiculopathy Plan:: We will schedule an L4-L5 lumbar epidural steroid injection for the patient to see if this is beneficial. Patient's not on any anticoagulation therapy. I will follow-up with her after the injection and reassess her symptoms at that time. Patient has been instructed to call the office if she has any issues prior to her next appointment. Dr. Hayward has reviewed this note and agrees with this plan of care. This note was dictated using voice recognition software and may contain errors or omissions
== END ==
PROVIDERS: PCP Family Medicine; Visit Provider Clinical Nurse Specialist Family Health
DX: M51.16 Intervertebral disc disorders with radiculopathy, lumbar region (principal)
CPT/HCPCS: 99213

== ENCOUNTER → 2018-12-25 10:46 | Outpatient (POV) | payer MEDICARE, BC, SELFPAY ==
[2018-12-25 11:09] VITALS: BP 156/57; PULSE 72; RESP 18; O2SAT 98; BMI 24.9
--- NOTE | 2018-12-26 08:46 | P.CONS_ITS ---
[facility] Pain Management SOAP Note Subjective:: Patient is a pleasant 83-year-old white female who presents today for follow-up after lumbar epidural steroid injection. Patient states she is doing much better rating her pain a 4 out of 10. She is again going to the cancer center. Patient would like to have another epidural steroid injection given the efficacy of this last one. Patient is taking tramadol 50 mg up to 3 times a day however she is taking it very sparingly at this point. ROS General: no recent weight change, no fever, no sleep disturbances Respiratory: no cough, no shortness of air, no recurring pulmonary infections Cardiovascular/Peripheral Vascular: No chest pain, No palpitations, no edema, no shortness of breath. Gastrointestinal: no incontinence, normal bowel movements reported Genitourinary: no incontinence Musculoskeletal: Back pain leg pain Psychiatric: normal mood/ affect Neurological: [denies weakness in extremities], [denies balance issues] Objective:: Physical Exam General: Alert and oriented x3, no acute distress, pleasant and cooperative, [on room air] Lungs: Resps E/U, Symmetrical chest expansion, Eyes: PERRL Musculoskeletal: Flexion and extension of lumbar spine somewhat guarded secondary to pain, deep tendon reflexes normal, strength in upper and lower e xtremities [5/5], [abnormal gait noted] Neurological: speech clear, game moderator equal, no gross sensory deficits Assessment:: Degenerative disc disease lumbar spine with lumbar radiculopathy symptoms and postlaminectomy syndrome lumbar spine Plan:: We will set her up for repeat epidural steroid injection at L5-S1. Patient did extremely well stating that she had 90% relief for several weeks and her pain is just beginning to return at this time. I will follow-up with the patient after injection and reassess her symptoms at that time. Dr. Hayward has reviewed this note and agrees with this plan of care. This note was dictated using voice recognition software and may contain errors or omissions
== END ==
PROVIDERS: PCP Family Medicine; Visit Provider Clinical Nurse Specialist Family Health
DX: M51.16 Intervertebral disc disorders with radiculopathy, lumbar region (principal); M96.1 Postlaminectomy syndrome, not elsewhere classified
CPT/HCPCS: 99213

== ENCOUNTER → 2019-01-15 13:00 | Outpatient (POV) | payer MEDICARE, BC, SELFPAY ==
[2019-01-15 13:51] VITALS: BP 168/78; PULSE 82; RESP 18; O2SAT 98; BMI 25.2
--- NOTE | 2019-01-16 08:08 | P.CONS_ITS ---
[facility] Pain Management SOAP Note Subjective:: Patient is a pleasant 84-year-old white female who presents today after lumbar epidural steroid injection. Patient is doing extremely well rating her pain a 2 out of 10. Patient is due to begin her radiation treatments. She would like to follow-up after she begins these to help reassess her pain. ROS General: no recent weight change, no fever, no sleep disturbances Respiratory: no cough, no shortness of air, no recurring pulmonary infections Cardiovascular/Peripheral Vascular: No chest pain, No palpitations, no edema, no shortness of breath. Gastrointestinal: no incontinence, normal bowel movements reported Genitourinary: no incontinence Musculoskeletal: Back pain, leg pain Psychiatric: normal mood/ affect Neurological: [denies weakness in extremities], [denies balance issues] Objective:: Physical Exam General: Alert and oriented x3, no acute distress, pleasant and cooperative, [on room air] Lungs: Resps E/U, Symmetrical chest expansion, Eyes: PERRL Musculoskeletal: Flexion and extension of lumbar spine somewhat guarded secondary to pain, deep tendon reflexes normal, strength in upper and lower extremities [5/5], [abnormal gait noted] Neurological: speech clear, supervisor rocket propellant plant equal, no gross sensory deficits Assessment:: Degenerative disc disease lumbar spine with lumbar radiculopathy symptoms Plan:: We will follow-up with the patient in 2-3 weeks reassess her symptoms at that time. Patient will be starting radiation therapy. Dr. Hayward has reviewed this note and agrees with this plan of care. This note was dictated using voice recognition software and may contain errors or omissions
== END ==
PROVIDERS: PCP Family Medicine; Visit Provider Clinical Nurse Specialist Family Health
DX: M51.16 Intervertebral disc disorders with radiculopathy, lumbar region (principal)
CPT/HCPCS: 99212

== ENCOUNTER → 2019-01-29 14:48 | Outpatient (POV) | payer MEDICARE, BC, SELFPAY ==
[2019-01-29 15:01] VITALS: BP 125/68; PULSE 58; RESP 18; O2SAT 97; BMI 23.6
--- NOTE | 2019-01-30 08:24 | P.CONS_ITS ---
[facility] Pain Management SOAP Note Subjective:: She is pleasant 84-year-old white female who presents today for follow-up. Patient overall doing well rates her pain a 2 out of 10. Patient is going to begin her radiation treatments. Patient is a little concerned and regards to pain after this. Patient denied discussed keeping up every couple months and following up as needed. She is interested in this. ROS General: no recent weight change, no fever, no sleep disturbances Respiratory: no cough, no shortness of air, no recurring pulmonary infections Cardiovascular/Peripheral Vascular: No chest pain, No palpitations, no edema, no shortness of breath. Gastrointestinal: no incontinence, normal bowel movements reported Genitourinary: no incontinence Musculoskeletal: Back pain, leg pain Psychiatric: normal mood/ affect Neurological: [denies weakness in extremities], [denies balance issues] Objective:: Physical Exam General: Alert and oriented x3, no acute distress, pleasant and cooperative, [on room air] Lungs: Resps E/U, Symmetrical chest expansion, Eyes: PERRL Musculoskeletal: Flexion and extension of lumbar spine somewhat guarded secondary to pain, deep tendon reflexes normal, strength in upper and lower extremities [5/5], [abnormal gait noted] Neurological: speech clear, change analyst equal, no gross sensory deficits Assessment:: Generative disc disease lumbar spine with lumbar radiculopathy symptoms and cancer related pain Plan:: We will order a compounding cream for the patient to help with pain during her radiation treatments. We will then see the patient's in 1 month to reassess her symptoms at that time she is been instructed to call the office if she has any issues prior to her next appointment. Dr. Hayward has reviewed this note and agrees with this plan of care. This note was dictated using voice recognition software and may contain errors or omissions
== END ==
PROVIDERS: PCP Family Medicine; Visit Provider Clinical Nurse Specialist Family Health
DX: M51.16 Intervertebral disc disorders with radiculopathy, lumbar region (principal); G89.3 Neoplasm related pain (acute) (chronic)
CPT/HCPCS: 99212

== ENCOUNTER 2019-02-28 18:20 | Observation (INO) ==
--- NOTE | 2019-02-28 18:32 | Emergency Department Note ---
ED Disposition Clinical Impression: Diaphoresis, Weakness Chest pain Qualifiers: Chest pain type: precordial pain Qualified Code(s): R07.2 - Precordial pain Lung cancer Qualifiers: Laterality: left Lung location: upper lobe of lung Qualified Code(s): C34.12 - Malignant neoplasm of upper lobe, left bronchus or lung Disposition: Still a Patient Condition on Discharge: Fair Referrals: Brandon Garcia MD [Primary Care Provider] - - Critical Care Critical Care Time: No Attestation: On , the high probability of a clinically significant, sudden or life threatening deterioration of the following system(s) required my full and direct attention, intervention and personal management. The time I documented below is in addition to time spent performing reported procedures but includes the following listed in this critical care notation. Medical Decision Making - Kevin Inquiry Pt receiving controlled substance: No Vital Signs: 02/28/19 18:25 Temperature 98.3 F Temperature Source Oral Pulse Rate [Right Radial] 85 Respiratory Rate 20 Blood Pressure [Right Arm] 178/95 H Blood Pressure Mean [Right Arm] 122 Blood Pressure Source [Right Arm] Automatic Cuff Blood Pressure Position [Right Arm] Sitting 02 Sat by Pulse Oximetry 95 Oxygen Delivery Method Room Air - Lab Data Lab Results 02/28/19 18:46: WBC 8.2, RBC 4.67, Hgb 14.4, Hct 42.6, MCV 91.3, MCH 30.9, MCHC 33.9, RDW 13.2, Plt Count 329, MPV 6.8 L, Neut % (Auto) 64.6, Lymph % (Auto) 23.5, [place] % (Auto) 6.6, Eos % (Auto) 4.7, Baso % (Auto) 0.7, Neut # (Auto) 5.3, Lymph # (Auto) 1.9, [place] # (Auto) 0.5, Eos # (Auto) 0.4, Baso # (Auto) 0.1 02/28/19 18:46: D-Dimer 427 H* 02/28/19 18:46: Sodium 139, Potassium 3.9, Chloride 105, Carbon Dioxide 27, Anion Gap 10.9, BUN 29 H, Creatinine 0.62, Estimated Creat Clear 52, Estimated GFR 92, Est GFR ( Amer) 112, Glucose 116 H, Calcium 8.9, Total Bilirubin 0.3, AST 8 L, ALT 23, Alkaline Phosphatase 81, Troponin I < 0.02, Total Protein 6.8, Albumin 3.2 L, Globulin 3.6 H, Albumin/Globulin Ratio 0.9 L, TSH 1.71 02/28/19 19:30: Lactate 0.8 Result diagrams: 02/28/19 18:46 02/28/19 18:46 Orders (Tests/Meds): ED MEDICATIONS Discontinued Medications Generic Name Dose Route Start Last Admin Trade Name Rodriguez PRN Reason Stop Dose Admin Aspirin 324 mg 02/28/19 18:49 02/28/19 18:55 Aspirin 81mg Chewable Tablet PO 02/28/19 18:50 324 mg ONCE ONE Administration Ioversol 70 ml 02/28/19 20:02 02/28/19 20:03 Rad-Optiray 350 100ml Vial IV 02/28/19 20:03 70 ml ONCE ONE Administration Protocol Sodium Chloride 1,000 ml 02/28/19 19:39 02/28/19 19:40 Sod Chlor 0.9% 1000ml Bag IV 02/28/19 19:40 1,000 ml BOLUS ONE Administration Sodium Chloride 10 ml 02/28/19 20:02 02/28/19 20:03 Rad-Saline Flush 10ml Syringe IV 02/28/19 20:03 10 ml ONCE ONE Administration Sodium Chloride 40 ml 02/28/19 20:02 02/28/19 20:03 Rad-Ns 50ml Vial IV 02/28/19 20:03 40 ml ONCE ONE Administration ORDERS Category Date Time Status CT angio chest Stat Cat Scan 02/28/19 19:36 Taken Urinalysis and Microscopic Stat Lab 02/28/19 18:47 Ordered Blood Culture Stat Micro 02/28/19 19:30 Received - Radiology Data #1 Image(s): Chest Image Reviewed: Yes I reviewed the patient's radiology image Preliminary Findings: Normal/NAD - ECG Data Tracing #1 EKG interpreted by Viral Jain MD: Rhythm: sinus Rate: 85 Webster: Left Ectopy: Premature atrial and ventricular contraction Conduction: normal ST Segment Changes: none T Wave Changes: none Q Waves: Lead aVF only No evidence of acute ischemia or injury Poor R wave progression Baseline artifact present, but I consider the EKG adequate for accurate interpretation. Medical Decision Narrative: 8:00 PM: At shift change, I have discussed the patient with Dr. Wood, who will assume care of the patient at this time. I have discussed all clinical information including history, physical and diagnostic study results. Preliminary diagnoses based on information available at this point have been recorded by me. Controlled substance administration and critical care statement are also preliminary, as of the time of handoff. General Adult HPI - General Stated complaint: weakness Time Seen by Provider: 02/28/19 18:31 - History of Present Illness HPI narrative: States she has not felt well for 2 days. She is sweating profusely. Intermittent chest pain. States that she is currently having chest discomfort which she says is just now started. Feels generally weak. Denies shortness of breath. She has a lung cancer left upper lobe, diagnosed a couple of years ago. Just finished up chemotherapy at the [facility] in [place]. Has a chronic cough, clear sputum. Denies hemoptysis. No fever. No calf pain or swelling. Has had some cramps in her thighs. She says she has been told that she had a heart attack years ago. No cardiac stents or bypass surgery. She is a former smoker. She has hypertension, hyperlipidemia and previous cerebrovascular accident. - Related Data Home Medications Medication Instructions Recorded Confirmed Estradiol 1 mg PO DAILY 01/02/18 12/29/18 Metoprolol Tartrate 50 mg PO BID 01/02/18 02/28/19 Acetaminophen 500 mg PO Q4HP PRN 05/14/18 12/29/18 Levothyroxine Sodium 50 mcg PO DAILY 05/17/18 02/28/19 [Levothyroxine 50mcg (0.05mg) Tab] tramadol 50 mg tablet 50 mg PO Q6H 08/18/18 02/28/19 Previous Rx's Medication Instructions Recorded Butalb/Acetaminophen/Caffeine 2 each PO Q6HP PRN #30 tab 05/23/18 [Fiorcet Tablet] Ondansetron HCl [Ondansetron 4mg 4 mg SL Q8H PRN #30 tab 05/23/18 Tablet] Allergies Allergy/AdvReac Type Severity Reaction Status Date / Time Tetanus Vaccines and Toxoid Allergy Unknown SWELLING Verified 12/29/18 11:32 [Tetanus Vaccines & Toxoid] [facility] History - Hepatitis A Screen Attestation statement:: This patient has been screened for Hepatitis A risk factors. I have reviewed the patient's past medical history: Yes Medical History: Reports:: Arrhythmia, Cancer, Cerebrovascular Accident, Hyperlipidemia, Hypertension Denies:: Diabetes Mellitus Type 1, Diabetes Mellitus Type 2, Internal Pacemaker, MRSA, Seizures Other Medical History: Reports: Hypothyroidism. Denies: Blood Transfusion Reaction Laterality Cases: Right: Arthroscopy Shoulder Other Surgeries: Yes: Hysterectomy-Total. No: Pacemaker. Comment Only: Other (BACK) Amputation: No Fractures: Yes - Social History Smoking Status: Former smoker Tobacco Type: cigarettes # Packs/Day (cigarettes): 1 Alcohol Intake: never Substance Use Type: denies use Occupational Status: retired, disabled Housing: apartment Household Members: other Family Hx:: Heart Attack, Hyperlipidemia Comment: Rheumatoid arthritis ROS Obtained: Yes All systems reviewed & no additional complaints - Constitutional Constitutional: Reports excessive sweating, Denies fever(s), Reports weakness - Cardiovascular Cardiovascular: Reports chest pain, Denies leg edema, Denies pedal edema - Respiratory Respiratory: Yes cough, No dyspnea, No coughing up blood - Gastrointestinal Gastrointestingal: Denies: abdominal pain, diarrhea, vomiting Physical Exam - General General appearance: alert, in no apparent distress - Head Head exam: atraumatic, normocephalic - Eye Eye exam: Present: normal appearance, EOMI - ENT ENT exam: Present: mucous membranes moist - Neck Neck exam: Present: normal inspection, trachea midline - Chest Chest inspection: Present: normal inspection, symmetric chest wall rise - Respiratory Respiratory exam: Present: normal lung sounds bilaterally. Absent: respiratory distress - Cardiovascular Cardiovascular exam: Present: regular rate - Abdominal Exam Abdominal exam: Present: soft. Absent: distention, tenderness, guarding, rebound - Extremities Exam Extremities exam: Present: normal inspection. Absent: tenderness, pedal edema, calf tenderness - Neurological Exam Neurological exam: Present: alert, oriented X3, CN II-XII intact. Absent: motor sensory deficit - Psychiatric Psychiatric exam: Present: normal affect, normal mood - Skin Skin exam: Present: warm, diaphoresis
[2019-02-28 19:02] LABS: Basophils # 0.1 K/mm3 (0-0.2); Basophils % 0.7 % (0.1-2.0); Eosinophils # 0.4 K/mm3 (0.0-0.4); Eosinophils % 4.7 % (0.1-12.0); Hematocrit 42.6 % (37.0-47.0); Hemoglobin 14.4 g/dL (12.2-16.2); Lymphocytes # 1.9 K/mm3 (0.7-4.5); Lymphocytes % 23.5 % (10-50); Mean Corpuscular HGB Conc 33.9 g/dL (31.8-35.4); Mean Corpuscular Hemoglobin 30.9 pg (27.0-31.2); Mean Corpuscular Volume 91.3 fl (81-99); Mean Platelet Volume 6.8 fl (7.4-10.4); Monocytes # 0.5 K/mm3 (0.1-1.0); Monocytes % 6.6 % (1.7-9.3); Neutrophils # 5.3 K/mm3 (1.8-7.8); Neutrophils % 64.6 % (37.0-80.0); Platelet Count 329 K/mm3 (142-424); Red Blood Count 4.67 M/mm3 (4.20-5.40); Red Cell Distribution Width 13.2 % (11.5-17.5); White Blood Count 8.2 K/mm3 (4.8-10.8)
[2019-02-28 19:28] LABS: Alanine Aminotransferase 23 U/L (12-78); Albumin Level 3.2 gm/dL (3.4-5.0); Albumin/Globulin Ratio 0.9 (1.1-1.8); Alkaline Phosphatase 81 U/L (46-116); Anion Gap 10.9 mEq/L (5-15); Aspartate Amino Transferase 8 U/L (15-37); Bilirubin,Total 0.3 mg/dL (0.2-1.0); Blood Urea Nitrogen 29 mg/dL (7-18); Calcium 8.9 mg/dL (8.5-10.1); Carbon Dioxide 27 mmol/L (21.0-32.0); Chloride 105 mmol/L (98-107); Globulin 3.6 gm/dl (1.3-3.2); Glucose 116 mg/dL (74-106); Potassium 3.9 mmoL/L (3.5-5.1); Sodium 139 mmol/L (136-145); Thyroid Stimulating Hormone 1.71 uIU/ml (0.358-3.740); Total Protein,Serum 6.8 gm/dL (6.4-8.2)
[2019-02-28 21:54] LABS: Microscopic, Urine URINE MICROSCOPIC (MICROSCOPIC)
[2019-02-28 22:02] LABS: Appearance,Urine CLEAR (Clear); Bilirubin,Urine Negative (Negative); Blood, Urine TRACE-I (Negative); Color,Urine YELLOW (Yellow); Glucose,Urine (UA) Negative (Negative); Ketones,Urine Negative (Negative); Leukocyte Esterase,Urine Negative (Negative); PH,Urine 6.5 (5.0-8.5); Protein,Urine Negative (Negative); Urobilinogen,Urine 0.2 EU/dl (0.2)
[2019-02-28 22:18] LABS: Bacteria,Urine 1+ /lpf
[2019-03-01 04:00] LABS: Basophils % 0.6 % (0.1-2.0); Eosinophils # 0.4 K/mm3 (0.0-0.4); Eosinophils % 6.7 % (0.1-12.0); Hematocrit 40.2 % (37.0-47.0); Hemoglobin 13.3 g/dL (12.2-16.2); Lymphocytes # 1.9 K/mm3 (0.7-4.5); Lymphocytes % 32.9 % (10-50); Mean Corpuscular Hemoglobin 30.4 pg (27.0-31.2); Mean Corpuscular Volume 91.9 fl (81-99); Mean Platelet Volume 6.8 fl (7.4-10.4); Monocytes # 0.4 K/mm3 (0.1-1.0); Monocytes % 7.1 % (1.7-9.3); Neutrophils # 3.1 K/mm3 (1.8-7.8); Neutrophils % 52.7 % (37.0-80.0); Platelet Count 289 K/mm3 (142-424); Red Blood Count 4.38 M/mm3 (4.20-5.40); Red Cell Distribution Width 13.2 % (11.5-17.5); White Blood Count 5.9 K/mm3 (4.8-10.8)
[2019-03-01 04:08] LABS: Anion Gap 9.9 mEq/L (5-15); Calcium 8.1 mg/dL (8.5-10.1); Chol/HDL Ratio 4.4 (1-3.5); Potassium 3.9 mmoL/L (3.5-5.1)
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
--- NOTE | 2019-03-01 07:11 | Pharmacy Consult Notes ---
[facility] Pharmacy VTE Monitoring - Patient Demographics Admission date: 02/28/19 Report Date: 03/01/19 Time: 07:11 Allergies/Adverse Reactions: Patient Allergies Tetanus Vaccines and Toxoid [Tetanus Vaccines & Toxoid] Allergy (Unknown, Verified 12/29/18 11:32) SWELLING sulfamethoxazole [From Bactrim] Adverse Reaction (Intermediate, Verified 02/28/19 22:47) Nausea trimethoprim [From Bactrim] Adverse Reaction (Intermediate, Verified 02/28/19 22:47) Nausea Height: 1.78 m Weight: 81.306 kg Patient Problems: Current Active Problems (Updated 02/28/19 @ 20:05 by Viral Jain MD) Lung cancer (Acute) Chest pain (Acute) Diaphoresis (Acute) Weakness (Acute) - VTE Risk Labs: VTE Related Lab Results Hgb 13.3 g/dL (12.2-16.2) 03/01/19 03:45 Hct 40.2 % (37.0-47.0) 03/01/19 03:45 Plt Count 289 K/mm3 (142-424) 03/01/19 03:45 BUN 27 mg/dL (7-18) H 03/01/19 03:45 Creatinine 0.58 mg/dL (0.55-1.02) 03/01/19 03:45 Estimated Creat Clear 55 mL/min (50-200) 03/01/19 03:45 Was VTE Risk Assessment Performed: Yes VTE Score: 9 VTE Risk Level: Moderate Risk - Prophylaxis VTE Prophylaxis Ordered?: Yes Types of VTE Prophylaxis: TEDS Knee High Location of Applied Device: Bilateral Lower Extremeties - VTE Diagnosis Confirmed Treatment or plan recommended: Continue Current Treatment
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
--- NOTE | 2019-03-01 11:42 | Cardiology Report ---
PROCEDURE: 2-D M-mode and color Doppler study INDICATIONS FOR THE TEST: Chest pain+ COPD Heart Murmur Tobacco Smoking Palpitations Fatigue Syncope Edema Hypertension+Diabetes Mellitus Rheumatic Fever+ SOB+WU Obesity Hyperlipidemia+ Family History HD Additional History LUNG CA, RADATION, CVA, [place], DIAPHORESIS PATIENT INFORMATION HEIGHT: 70 WEIGHT:168 GENDER: Female B/P:178/95 2-D/M-MODE INTERPRETATION: 2-D MEASUREMENTS OBSERVED VALUES IN CMS Right Ventricular Dimension (RVDd) 3.7 Interventricular Septum (Thickness)(IVsd) 1.8 Left Ventricular Internal Dimensions(LVIDd) 3.7 Left Ventricular Posterior Wall (Thickness)(LVPWd) 1.2 Aortic Root 4.0 Aortic Cusp Separation 1.8 Left Atrial Dimensions (LAD) 4.0 2D 1. Left atrium is moderately enlarged, left ventricle is normal size, mild concentric left ventricular hypertrophy, hyperdynamic left ventricular systolic function, visually estimated ejection fraction over 65% with no regional wall motion abnormality. There is complete cavity obliteration during systole. 2. The right atrium and right ventricle are mildly enlarged with normal contractility. 3. The aortic valve is thickened and calcified leaflet continue to display good to be 4. The mitral valve has mitral annular calcification, leaflets are minimally thickened and calcified, there is mild systolic anterior motion of the mitral valve leaflets seen. 5. The tricuspid valve is grossly normal. 6. The pulmonic valve is poorly visualized. 7. There is no significant pericardial effusion noted. DOPPLER INTERROGATION: 1. The maximum aortic out flow velocity recorded study 2.3 m/s, resulting in a mean gradient across valve of 11 mmHg, represents mild aortic stenosis, there is no aortic insufficiency. 2. The mitral inflow velocity within normal range, there is no mitral stenosis, there is mitral regurgitation present which is difficult to quantify it is likely moderate to severe range. If clinically indicated transesophageal echocardiogram is recommended. 3. Mild tricuspid regurgitation, tricuspid regurgitation jet velocity is inadequate for calculation of the right ventricular systolic pressure. 4. The diastolic parameters are inconclusive, inferior vena cava is not well visualized. CONCLUSION: 1. Biatrial enlargement left atrium, normal left ventricular size, mild concentric left ventricular hypertrophy, hyperdynamic left ventricular systolic function, visually estimated ejection fraction over 65%, there is complete cavity obscuration during systole. 2. Thickened and calcified aortic valve with mean gradient across valve of 11 mmHg consistent with mild aortic stenosis, there is no aortic insufficiency. 3. Moderate to severe mitral regurgitation, as described above, if clinically indicated transesophageal echocardiogram is recommended. 4. Mild tricuspid regurgitation, tricuspid regurgitation jet velocity is inadequate for calculation of the right ventricular systolic pressure, diastolic parameters are inconclusive. Inferior vena cava is not well visualized. 5. No significant pericardial effusion noted.
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
[2019-03-02 07:23] LABS: Basophils % 0.6 % (0.1-2.0); Eosinophils # 0.4 K/mm3 (0.0-0.4); Eosinophils % 6.8 % (0.1-12.0); Hemoglobin 13.1 g/dL (12.2-16.2); Lymphocytes # 1.7 K/mm3 (0.7-4.5); Lymphocytes % 27.4 % (10-50); Mean Corpuscular HGB Conc 33.5 g/dL (31.8-35.4); Mean Corpuscular Hemoglobin 30.8 pg (27.0-31.2); Mean Platelet Volume 6.6 fl (7.4-10.4); Monocytes # 0.3 K/mm3 (0.1-1.0); Monocytes % 5.3 % (1.7-9.3); Neutrophils # 3.8 K/mm3 (1.8-7.8); Neutrophils % 59.9 % (37.0-80.0); Platelet Count 269 K/mm3 (142-424); Red Blood Count 4.24 M/mm3 (4.20-5.40); Red Cell Distribution Width 13.1 % (11.5-17.5); White Blood Count 6.3 K/mm3 (4.8-10.8)
[2019-03-02 07:29] LABS: Anion Gap 9.7 mEq/L (5-15); Calcium 7.8 mg/dL (8.5-10.1); Potassium 3.7 mmoL/L (3.5-5.1)
== END 2019-03-02 10:25 | disposition home or self-care (01) ==
LOC: 2ND 18:20 → ER 18:20 → 2ND 22:11
PROVIDERS: ADMIT Emergency Medicine; ATTEND Family Medicine
DX: R07.9 Chest pain, unspecified
CPT/HCPCS: 36415; 71020; 71046; 71275; 80048; 80053; 80061; 81001; 83605; 83735; 84443; 84484; 85025; 85378; 87040; 87070; 87077; 87205; 93005; 93306; 94640; 96365; 99284; G0378; J1644; J2405; Q9967

== ENCOUNTER 2019-03-02 17:01 | Inpatient (IN) ==
--- NOTE | 2019-03-02 17:24 | Emergency Department Note ---
ED Disposition Clinical Impression: Elevated troponin Disposition: Admitted as Observation Condition on Discharge: Good - Critical Care Critical Care Time: No Attestation: On , the high probability of a clinically significant, sudden or life threatening deterioration of the following system(s) required my full and direct attention, intervention and personal management. The time I documented below is in addition to time spent performing reported procedures but includes the following listed in this critical care notation. Medical Decision Making - Medical Records Medical records reviewed: Yes: I reviewed the patient's medical records. - Kevin Inquiry Pt receiving controlled substance: No Vital Signs: 03/02/19 17:01 03/02/19 17:34 03/02/19 18:05 Temperature 98.2 F Temperature Source Oral Pulse Rate [Apical] 92 H 91 H 92 H Respiratory Rate 22 20 Blood Pressure [Left Arm] 92/57 L 88/53 L 94/66 L Blood Pressure Mean [Left Arm] 68 64 75 Blood Pressure Source [Left Arm] Automatic Cuff Automatic Cuff Automatic Cuff Blood Pressure Position [Left Arm] Sitting Sitting Sitting 02 Sat by Pulse Oximetry 95 94 L 95 Oxygen Delivery Method Room Air Room Air Room Air 03/02/19 18:18 03/02/19 19:00 Temperature Temperature Source Pulse Rate [Apical] 99 H 99 H Respiratory Rate 20 Blood Pressure [Left Arm] 84/59 L 125/52 L Blood Pressure Mean [Left Arm] 67 76 Blood Pressure Source [Left Arm] Automatic Cuff Blood Pressure Position [Left Arm] Sitting Sitting 02 Sat by Pulse Oximetry 90 L 95 Oxygen Delivery Method Room Air Room Air - Lab Data Lab results reviewed: Yes: I reviewed the patient's lab results. Lab Results 03/02/19 17:20: WBC 8.2 D, RBC 4.38, Hgb 13.2, Hct 39.9, MCV 91.3, MCH 30.1, MCHC 32.9, RDW 13.2, Plt Count 325, MPV 6.7 L, Neut % (Auto) 82.5 H, Lymph % (Auto) 13.6, [place] % (Auto) 3.5, Eos % (Auto) 0.1, Baso % (Auto) 0.2, Neut # (Auto) 6.7, Lymph # (Auto) 1.1, [place] # (Auto) 0.3, Eos # (Auto) 0.0, Baso # (Auto) 0.0 03/02/19 17:20: Sodium 143, Potassium 3.8, Chloride 108 H, Carbon Dioxide 25, Anion Gap 13.8, BUN 31 H D, Creatinine 0.99 D, Estimated Creat Clear 51, Estimated GFR 54 L, Est GFR ( Amer) 65 D, Glucose 129 H D, Calcium 8.3 L , Total Bilirubin 0.2, AST 39 H D, ALT 23, Alkaline Phosphatase 61, Troponin I 7.69 H, Total Protein 6.2 L, Albumin 3.0 L, Globulin 3.2, Albumin/Globulin Ratio 0.9 L, Lipase 90 03/02/19 17:20: B-Natriuretic Peptide 163 H 03/02/19 17:20: D-Dimer 373 03/02/19 18:24: Lactate 1.6 Result diagrams: 03/02/19 17:20 03/02/19 17:20 Orders (Tests/Meds): ED MEDICATIONS Generic Name Dose Route Start Last Admin Trade Name Freq PRN Reason Stop Dose Admin Sodium Chloride 1,000 mls @ 999 mls/hr 03/02/19 17:30 03/02/19 17:24 Sod Chlor 0.9% 1000ml Bag IV 03/02/19 18:30 999 mls/hr .Q1H1M DRAKE Administration Discontinued Medications Generic Name Dose Route Start Last Admin Trade Name Freq PRN Reason Stop Dose Admin Aspirin 324 mg 03/02/19 17:23 03/02/19 17:49 Aspirin 81mg Chewable Tablet PO 03/02/19 17:24 324 mg ONCE ONE Administration Ioversol 70 ml 03/02/19 18:49 03/02/19 18:52 Rad-Optiray 350 100ml Vial IV 03/02/19 18:50 70 ml ONCE ONE Administration Protocol Ondansetron HCl 4 mg 03/02/19 17:20 03/02/19 17:24 Zofran 4mg/2ml Vial IV 03/02/19 17:21 4 mg ONCE ONE Administration Pantoprazole Sodium 40 mg 03/02/19 17:18 03/02/19 18:06 Protonix 40mg Vial IV 03/02/19 17:19 40 mg ONCE ONE Administration Sodium Chloride 8 ml 03/02/19 17:18 03/02/19 18:07 Saline Flush 10ml Syringe IV 03/02/19 17:19 8 ml ONCE ONE Administration Sodium Chloride 40 ml 03/02/19 18:49 03/02/19 18:52 Rad-Ns 50ml Vial IV 03/02/19 18:50 40 ml ONCE ONE Administration Sodium Chloride 10 ml 03/02/19 18:49 03/02/19 18:52 Rad-Saline Flush 10ml Syringe IV 03/02/19 18:50 10 ml ONCE ONE Administration ORDERS Category Date Time Status CT abdomen pelvis wo con Stat Cat Scan 03/02/19 18:11 Taken CTA Chest [CT angio chest] Stat Cat Scan 03/02/19 18:11 Taken ECG Request by /Faraz Stat Y 03/02/19 17:17 Ordered - Radiology Data #1 Image(s): Chest Image Reviewed: Yes I have reviewed radiologist's interpretation Preliminary Findings: Normal/NAD - ECG Data Tracing #1 I reviewed this ECG and interpreted as documented below: Normal Sinus Rhythm: Yes (no stemi) Medical Decision Narrative: consult d/w Dr Francois who will take the pt to the bundle tier and labeler now, admit d/w Dr Garcia General Adult HPI - General Chief complaint: Chest Pain Stated complaint: chest pain, SOA Time Seen by Provider: 03/02/19 17:21 Mode of Arrival: Wheelchair Source of Information: Patient Limitations: No Limitations Description of Symptoms (Recalled from ER Triage Doc. by RN): Pt reports chest pain that radiates into her neck and getting dizzy when standing up. Pt reports she was discharged from the hospital today, pt reports she had a heart cath yesterday. Pt reports she was started on a new blood pressure medication while in the hospital, pt reports she was seen at Dr. Garcia' office apporx 1.5 hrs ago and her bp was "real low", states Dr. Garcia told her to stop taking her new blood pressure medication. - History of Present Illness HPI narrative: mild to mod epigastric cramps w/ rad to neck and NV, discharged today, presents w/ low blood pressure, no fever, no injury, hx normal cardiac cath - Related Data Home Medications Medication Instructions Recorded Confirmed Acetaminophen 500 mg PO Q4HP PRN 05/14/18 03/02/19 tramadol 50 mg tablet 50 mg PO Q8HP PRN 08/18/18 03/02/19 Duloxetine HCl 60 mg PO DAILY 03/01/19 03/02/19 Estradiol 0.5 mg PO DAILY 03/01/19 03/02/19 Levothyroxine Sodium 75 mcg PO DAILY 03/01/19 03/02/19 [Levothyroxine 75mcg (0.075mg) Tab] Naproxen 500 mg PO BIDP PRN 03/01/19 03/02/19 Furosemide [Furosemide 20mg Tab] 20 mg PO DAILY 03/02/19 03/02/19 Verapamil HCl [Calan SR 120mg 120 mg PO DAILY 03/02/19 03/02/19 tablet] Allergies Allergy/AdvReac Type Severity Reaction Status Date / Time Tetanus Vaccines and Toxoid Allergy Unknown SWELLING Verified 12/29/18 11:32 [Tetanus Vaccines & Toxoid] sulfamethoxazole AdvReac Intermediate Nausea Verified 02/28/19 22:47 [From Bactrim] trimethoprim [From Bactrim] AdvReac Intermediate Nausea Verified 02/28/19 22:47 [facility] History - Hepatitis A Screen Drug use history?: No High risk sexual behaviors?: No History of sexually transmitted infection?: No Currently employed?: No Childcare worker?: No Do you have indoor plumbing?: Yes Do you have electricity?: Yes Attestation statement:: This patient has been screened for Hepatitis A risk factors. Medical History: Reports:: Arrhythmia, Cancer (LUNG CANCER (LEFT UPPER LOBE)), Cerebrovascular Accident, Hyperlipidemia, Hypertension Denies:: Diabetes Mellitus Type 1, Diabetes Mellitus Type 2, Internal Pacemaker, MRSA, Seizures Other Medical History: Reports: Hypothyroidism. Denies: Blood Transfusion Reaction Laterality Cases: Right: Arthroscopy Shoulder Other Surgeries: Yes: Cholecystectomy, Hysterectomy-Total. No: Pacemaker. Co mment Only: Other (BACK, ROTATOR CUFF ON RIGHT) Amputation: No Fractures: Yes - Social History Smoking Status: Former smoker Tobacco Type: cigarettes # Packs/Day (cigarettes): 1 #Yrs smoked (if former smoker): 40 Alcohol Intake: never Substance Use Type: denies use Occupational Status: retired, disabled Housing: apartment Household Members: other Family Hx:: Anemia, Asthma, Cancer, Coronary Artery Disease, Heart Attack, Hyperlipidemia, Hypertension, Kidney Disease, Stroke, Thyroid Disorder Comment: Rheumatoid arthritis ROS Obtained: Yes Systems reviewed as appropriate & no additional complaints - Constitutional Constitutional: Denies fever(s) - Eyes Eyes: Denies change in vision - ENT Ears, Nose, Mouth, and Throat: Denies change in voice, Denies nasal congestion - Cardiovascular Cardiovascular: Denies chest pain - Respiratory Respiratory: No dyspnea - Gastrointestinal Gastrointestingal: Reports: abdominal pain, vomiting - Musculoskeletal Musculoskeletal: Denies back pain - Integumentary/Breasts Skin/Breast: Denies rash - Neurologic Neurologic: Denies dizziness Physical Exam - General General appearance: alert - Head Head exam: atraumatic - Eye Eye exam: Present: normal appearance - ENT ENT exam: Present: mucous membranes moist - Neck Neck exam: Present: normal inspection - Chest Chest inspection: Present: normal inspection - Respiratory Respiratory exam: Present: normal lung sounds bilaterally - Cardiovascular Cardiovascular exam: Present: regular rate, normal rhythm - Abdominal Exam Abdominal exam: Present: soft, tenderness. Absent: rebound - Extremities Exam Extremities exam: Present: full ROM - Back Exam Back exam: Absent: vertebral tenderness - Neurological Exam Neurological exam: Present: alert, oriented X3 - Psychiatric Psychiatric exam: Present: normal affect, normal mood - Skin Skin exam: Present: warm, dry
[2019-03-02 17:30] LABS: Basophils % 0.2 % (0.1-2.0); Eosinophils % 0.1 % (0.1-12.0); Hematocrit 39.9 % (37.0-47.0); Hemoglobin 13.2 g/dL (12.2-16.2); Lymphocytes # 1.1 K/mm3 (0.7-4.5); Lymphocytes % 13.6 % (10-50); Mean Corpuscular HGB Conc 32.9 g/dL (31.8-35.4); Mean Corpuscular Hemoglobin 30.1 pg (27.0-31.2); Mean Corpuscular Volume 91.3 fl (81-99); Mean Platelet Volume 6.7 fl (7.4-10.4); Monocytes # 0.3 K/mm3 (0.1-1.0); Monocytes % 3.5 % (1.7-9.3); Neutrophils # 6.7 K/mm3 (1.8-7.8); Neutrophils % 82.5 % (37.0-80.0); Platelet Count 325 K/mm3 (142-424); Red Blood Count 4.38 M/mm3 (4.20-5.40); Red Cell Distribution Width 13.2 % (11.5-17.5); White Blood Count 8.2 K/mm3 (4.8-10.8)
[2019-03-02 17:59] LABS: Albumin/Globulin Ratio 0.9 (1.1-1.8); Anion Gap 13.8 mEq/L (5-15); Bilirubin,Total 0.2 mg/dL (0.2-1.0); Calcium 8.3 mg/dL (8.5-10.1); Globulin 3.2 gm/dl (1.3-3.2); Potassium 3.8 mmoL/L (3.5-5.1); Total Protein,Serum 6.2 gm/dL (6.4-8.2)
[2019-03-03 06:15] LABS: Basophils % 0.4 % (0.1-2.0); Eosinophils # 0.2 K/mm3 (0.0-0.4); Eosinophils % 2.9 % (0.1-12.0); Hematocrit 34.8 % (37.0-47.0); Lymphocytes # 1.9 K/mm3 (0.7-4.5); Lymphocytes % 25.7 % (10-50); Mean Corpuscular HGB Conc 33.4 g/dL (31.8-35.4); Mean Corpuscular Hemoglobin 30.9 pg (27.0-31.2); Mean Corpuscular Volume 92.5 fl (81-99); Mean Platelet Volume 6.9 fl (7.4-10.4); Monocytes # 0.4 K/mm3 (0.1-1.0); Monocytes % 5.9 % (1.7-9.3); Neutrophils # 4.9 K/mm3 (1.8-7.8); Neutrophils % 65.1 % (37.0-80.0); Platelet Count 261 K/mm3 (142-424); Red Blood Count 3.76 M/mm3 (4.20-5.40); Red Cell Distribution Width 13.3 % (11.5-17.5); White Blood Count 7.5 K/mm3 (4.8-10.8)
[2019-03-03 06:17] LABS: Hemoglobin 11.6 g/dL (12.2-16.2)
[2019-03-03 06:44] LABS: Anion Gap 12.7 mEq/L (5-15); Potassium 3.7 mmoL/L (3.5-5.1)
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
--- NOTE | 2019-03-03 09:31 | Pharmacy Consult Notes ---
[facility] Pharmacy VTE Monitoring - Patient Demographics Admission date: 03/02/19 Report Date: 03/03/19 Time: 09:31 Allergies/Adverse Reactions: Patient Allergies Tetanus Vaccines and Toxoid [Tetanus Vaccines & Toxoid] Allergy (Unknown, Verified 12/29/18 11:32) SWELLING sulfamethoxazole [From Bactrim] Adverse Reaction (Intermediate, Verified 02/28/19 22:47) Nausea trimethoprim [From Bactrim] Adverse Reaction (Intermediate, Verified 02/28/19 22:47) Nausea Height: 1.78 m Weight: 85.842 kg Patient Problems: Current Active Problems (Updated 03/03/19 @ 08:34 by Brandon Garcia MD) Elevated troponin (Acute) Stress-induced cardiomyopathy (Acute) - VTE Risk Labs: VTE Related Lab Results Hgb 11.6 g/dL (12.2-16.2) L D 03/03/19 05:40 Hct 34.8 % (37.0-47.0) L 03/03/19 05:40 Plt Count 261 K/mm3 (142-424) 03/03/19 05:40 BUN 29 mg/dL (7-18) H 03/03/19 05:40 Creatinine 0.67 mg/dL (0.55-1.02) D 03/03/19 05:40 Estimated Creat Clear 59 mL/min (50-200) 03/03/19 05:40 VTE Score: 14 VTE Risk Level: Moderate Risk - Prophylaxis VTE Prophylaxis Ordered?: Yes Types of VTE Prophylaxis: TEDS Knee High Location of Applied Device: Bilateral Lower Extremeties
[2019-03-04 06:34] LABS: Anion Gap 9.8 mEq/L (5-15); Potassium 3.8 mmoL/L (3.5-5.1)
--- NOTE | 2019-03-04 07:16 | Progress Note ---
Internal Medicine - PN: Subj *Date: 03/04/19 *Time: 07:14 Interval history: Patient has no complaints this morning. She reports multiple episodes of chest pain yesterday the most intense of which was in the morning. Since that time she has been started on scheduled Vistaril with as needed IV lorazepam. She has not required any PRN medication. She slept well which is the first time she had slept in a while because of stress at home. Exam Vital signs and Labs for Last 24 Hours: Temp Pulse Resp BP Pulse Ox 97.8 F 77 22 127/79 92 L 03/04/19 04:00 03/04/19 04:00 03/04/19 04:00 03/04/19 04:00 03/04/19 06:39 Laboratory Results - last 24 hr 03/04/19 05:40: Sodium 140, Potassium 3.8, Chloride 106, Carbon Dioxide 28, Anion Gap 9.8, BUN 27 H, Creatinine 0.51 L D, Estimated Creat Clear 58, Estimated GFR 115, Est GFR ( Amer) 140 D, Glucose 92, Calcium 8.0 L, Troponin I 3.27 H I & O for Last 24 hours: Intake & Output 03/01/19 03/02/19 03/03/19 03/04/19 11:59 11:59 11:59 11:59 Intake Total 240 / 240 Output Total 350 / 350 Balance -110 / -110 Weight 189 lb 4 oz 185 lb 3 oz Narrative: She appears comfortable sitting on the side of the bed. Lungs have some coarse rhonchi best heard posteriorly. Heart has a mildly tachycardic rate and rhythm. Extremities are without edema Assessment and Plan (1) Stress-induced cardiomyopathy Current visit: Yes Status: Acute Category: Medical Code(s): I51.81 - Takotsubo syndrome Increase metoprolol ER to 100 mg daily as patient's pulse rate still rises to slightly above 100 with light activity and with conversation. Continue Vistaril. Repeat echo in a.m.
--- NOTE | 2019-03-05 07:06 | Progress Note ---
Internal Medicine - PN: Subj *Date: 03/05/19 *Time: 07:04 Interval history: Patient slept well again overnight. She reports a very brief episode of chest discomfort yesterday that resolved quickly without intervention. This morning her daughter is present in the room. Exam Vital signs and Labs for Last 24 Hours: Temp Pulse Resp BP Pulse Ox 98.3 F 79 18 142/82 H 92 L 03/05/19 05:25 03/05/19 05:25 03/05/19 05:25 03/05/19 05:25 03/05/19 05:25 I & O for Last 24 hours: Intake & Output 03/02/19 03/03/19 03/04/19 03/05/19 11:59 11:59 11:59 11:59 Intake Total 720 / 720 840 / 840 Output Total 625 / 625 600 / 600 Balance 95 / 95 240 / 240 Weight 189 lb 4 oz 185 lb 3 oz 184 lb 5 oz Narrative: Patient appears well. Lungs this morning are clear. Heart has a regular rate and rhythm. Extremities are without edema Assessment and Plan (1) Stress-induced cardiomyopathy Current visit: Yes Status: Acute Category: Medical Code(s): I51.81 - Takotsubo syndrome - Assessment and plan all Dx Assessment and Plan for all problems:: 1. Repeat echocardiogram this morning 2. Had a long discussion with the patient and her family regarding her diagnosis and prognosis. The daughter has driven up from [place] to help intervene with the family and social situations that have contributed to so much stress for the patient 3. Patient should be able to discharge later this afternoon
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
--- NOTE | 2019-03-05 13:38 | Progress Note ---
Subjective Date: 03/05/19 Time: 13:34 Principal diagnosis: STEMI, Takotsubo Cardiomyopathy Interval history: 84 yo WF readmitted on 03/02/2019 after being discharged home earlier that day for recurrent chest pain and "feeling like I was going to ." Repeat labs and EKG indicated STEMI with subsequent cardiac cath showing normal coronaries with apical hypokinesis consistent with Takotsubo Cardiomyopathy related to severe emotional stress. Patient was kept and monitored over the weekend with medication changes (stopping verapamil and afterload reducing meds in order to increase beta blockers) with addition of anti-anxiety meds. Telemetry shows no arrhythmias through the weekend. Patient states she is feeling much better today and has been discharged home. Preliminary echocardiogram this morning shows improved ejection fraction in the 40-45% range (up from 30% at the time of cardiac cath last week) Exam Vital signs and Labs for Last 24 Hours: Temp Pulse Resp BP Pulse Ox 98.2 F 73 17 144/84 H 95 03/05/19 11:40 03/05/19 11:40 03/05/19 11:40 03/05/19 11:40 03/05/19 11:40 I & O for Last 24 hours: Intake & Output 03/03/19 03/04/19 03/05/19 03/06/19 11:59 11:59 11:59 11:59 Intake Total 720 / 720 840 / 840 Output Total 625 / 625 600 / 600 Balance 95 / 95 240 / 240 Weight 189 lb 4 oz 185 lb 3 oz 184 lb 5 oz - *Routine HEENT Exam Head: Present: normocephalic Eye: Present: EOMI, PERRL ENT: Present: mucous membranes moist - *Routine Respiratory Exam Present: wheezes, diminished air movement. Absent: accessory muscle use, rales, rhonchi - *Routine Cardiovascular Exam Present: RRR. Absent: murmur, gallop, rubs - *Routine Extremities Exam Absent: edema, calf tenderness - *Routine Neurological Exam Present: alert, oriented X3, moving all extremities Progress Note: A&P (1) Stress-induced cardiomyopathy Status: Acute Current Visit: Yes Assessment and Plan for All Diagnoses:: 1. Patient will follow-up with Dr. Garcia later this week. 2. We would like to see her back in the office in 1 week.
--- NOTE | 2019-03-05 21:45 | Cardiology Report ---
PROCEDURE: Limited echocardiogram INDICATIONS FOR THE TEST: Chest pain + COPD Heart Murmur Tobacco Smoking Palpitations Fatigue Syncope Edema Hypertension+Diabetes Mellitus Rheumatic Fever+ SOB+WU Obesity Hyperlipidemia+ Family History HD Additional History EF ON ECHO ON 03/02/19 >65%, EF ON CATH 03/02/19 30% WITH APICAL BALLOONING, ?TAKOTSUBO CM OR STRESS CM PATIENT INFORMATION HEIGHT: 70 WEIGHT:184 GENDER: Female B/P:127/79 2-D/M-MODE INTERPRETATION: 2-D MEASUREMENTS OBSERVED VALUES IN CMS Right Ventricular Dimension (RVDd) Interventricular Septum (Thickness)(IVsd) 0.9 Left Ventricular Internal Dimensions(LVIDd) 5.6 Left Ventricular Posterior Wall (Thickness)(LVPWd) 1.4 Aortic Root 3.0 Aortic Cusp Separation 1.7 Left Atrial Dimensions (LAD) 4.0 2D 1. Left atrium is mildly enlarged, left ventricle is normal size, there is mild concentric left ventricular hypertrophy, visually estimated approximately 40-45%, there is marked hypokinesis involving the distal septum and anteroapical wall. 2. The right atrium and right ventricle are normal size and contractility. 3. The aortic valve is thickened and calcified leaflet continue to display mobility. 4. The mitral and tricuspid valve are grossly normal. 5. The pulmonic valve is poorly present. 6. No significant pericardial effusion noted. DOPPLER INTERROGATION: There is no color Doppler performed. CONCLUSION: 1. Mildly enlarged left atrium, normal left ventricular size, mild concentric left ventricular hypertrophy, visually estimated ejection fraction 40-45% with discrete segmental wall motion abnormalities as described above. 2. No significant pericardial effusion noted.
== END 2019-03-05 14:17 | disposition home or self-care (01) | DRG 287 ==
LOC: ER 17:01 → SDC 19:56 → 2ND 20:32
PROVIDERS: ADMIT Family Medicine; ATTEND Family Medicine
DX: I10 Essential (primary) hypertension; E03.9 Hypothyroidism, unspecified; I51.81 Takotsubo syndrome; Z63.8 Other specified problems related to primary support group; Z79.899 Other long term (current) drug therapy; Z88.1 Allergy status to other antibiotic agents; Z85.118 Personal history of other malignant neoplasm of bronchus and lung; Z88.7 Allergy status to serum and vaccine; Z79.51 Long term (current) use of inhaled steroids
CPT/HCPCS: 36415; 71010; 71020; 71045; 71046; 71275; 74176; 80048; 80053; 80061; 81001; 83605; 83690; 83735; 83880; 84443; 84484; 85025; 85378; 87040; 87070; 87077; 87205; 93005; 93306; 93308; 93458; 94640; 96365; 96375; 99152; 99153; 99284; C1725; C1769; G0378; J1644; J2405; Q9967

== ENCOUNTER → 2019-03-13 09:27 | Outpatient (POV) | payer MEDICARE, BC, SELFPAY | PROVIDERS: Visit Provider Internal Medicine | DX: Z00.00 Encounter for general adult medical examination without abnormal findings (principal) ==

== ENCOUNTER → 2019-03-19 14:28 | Outpatient (CLI) | payer MEDICARE, BC, SELFPAY ==
[2019-03-19 15:25] VITALS: PULSE 80; PULSE 84
== END ==
PROVIDERS: PCP Family Medicine; Visit Provider Internal Medicine
DX: R06.02 Shortness of breath (principal); R05 Cough
CPT/HCPCS: 94060; 94618; 94640; 94727; 94729

== ENCOUNTER → 2019-03-20 09:36 | Outpatient (POV) | payer MEDICARE, BC, SELFPAY ==
[2019-03-20 10:26] VITALS: BP 159/84; PULSE 79; RESP 18; O2SAT 98; BMI 25.0
--- NOTE | 2019-03-20 10:41 | HMH.PAINSOAP ---
[facility] Pain Management SOAP Note Subjective:: Patient is a pleasant 84-year-old white female who presents today for follow-up. Patient was doing well at her last visit however her pain his increased significantly. She rates her pain a 7 out of 10 in her back. Patient had been getting epidural steroid injections in which she got 80% relief up to 2 months. Patient would like to repeat this. Patient is done her radiation treatments. Patient has a PET scan in June. Patient's not on any anticoagulation therapy. ROS General: no recent weight change, no fever, no sleep disturbances Respiratory: no cough, no shortness of air, no recurring pulmonary infections Cardiovascular/Peripheral Vascular: No chest pain, No palpitations, no edema, no shortness of breath. Gastrointestinal: no incontinence, normal bowel movements reported Genitourinary: no incontinence Musculoskeletal: Back pain, leg pain Psychiatric: normal mood/ affect Neurological: [denies weakness in extremities], [denies balance issues] Objective:: Physical Exam General: Alert and oriented x3, no acute distress, pleasant and cooperative, [on room air] Lungs: Resps E/U, Symmetrical chest expansion, Eyes: PERRL Musculoskeletal: Flexion and extension of lumbar spine somewhat guarded secondary to pain, deep tendon reflexes normal, strength in upper and lower extremities [5/5], [abnormal gait noted] Neurological: speech clear, manager transit equal, no gross sensory deficits Assessment:: Degenerative disc disease lumbar spine with lumbar radiculopathy Plan:: We will plan an L4-L5 lumbar epidural steroid injection given the efficacy of this in the past I believe it would be beneficial. Patient's been instructed to call the office if she has any issues prior to her next appointment. I will follow-up with the patient after this. Dr. Hayward has reviewed this note and agrees with this plan of care. This note was dictated using voice recognition software and may contain errors or omissions
== END ==
PROVIDERS: PCP Family Medicine; Visit Provider Clinical Nurse Specialist Family Health
DX: M51.16 Intervertebral disc disorders with radiculopathy, lumbar region (principal)
CPT/HCPCS: 99212

== ENCOUNTER → 2019-03-23 13:28 | Day surgery (SDC) | payer MEDICARE, BC, SELFPAY ==
[2019-03-23 13:41] VITALS: BP 130/66; PULSE 67; RESP 18; O2SAT 97; BMI 23.9
[2019-03-23 14:01] VITALS: BP 142/85; PULSE 75; RESP 18; O2SAT 99
[2019-03-23 14:04] VITALS: BP 140/78; PULSE 77; RESP 18; O2SAT 99
--- NOTE | 2019-03-23 14:11 | HMH.PMPROC ---
- Procedure Date: 03/23/19 Time: 14:11 Anesthesiologist:: Jason Hayward MD Complications:: None Pre-procedure Diagnosis:: Degenerative disc disease of lumbar spine with lumbar spondylosis and postlaminectomy syndrome lumbar spine Post-procedure Diagnosis:: Same Indications for Procedure:: This patient is a pleasant 84-year-old white female who we are treating for low back pain with lumbar radicular symptoms and postlaminectomy syndrome lumbar spine. She is done very well with previous lumbar epidural steroid injections. She was 80% better for up to 2 to 3 months. Pain is starting to return. We will do repeat lumbar epidural steroid injection under fluoroscopy today. Procedure Details:: Lumbar epidural steroid injection under fluoroscopy Informed consent was obtained and the risk and benefits of the procedure was explained to the patient. The patient was taken to the procedure room. The patient was placed prone on the procedure table. The patient was prepped and draped in sterile fashion. C-arm fluoroscopy was used to view the lumbar spine. Skin and subcutaneous tissues were anesthetized using lidocaine. I placed an 18-gauge epidural needle and advanced into the L4-L5 interspace using fluoroscopic guidance and [id number] to air. After confirmation of needle placement in the epidural space with dye I injected 2 mL of lidocaine 1.5% with Depo-Medrol 80 mg. Patient tolerated the procedure well with no complications. Plan and Disposition:: We will follow-up with her in 2 weeks. Will reevaluate her symptoms at that time.
[2019-03-23 14:16] VITALS: BP 122/74; PULSE 69; RESP 17; O2SAT 95
== END ==
PROVIDERS: PCP Family Medicine; Visit Provider Anesthesiology
DX: M51.36 Other intervertebral disc degeneration, lumbar region (principal); M47.896 Other spondylosis, lumbar region; M96.1 Postlaminectomy syndrome, not elsewhere classified
CPT/HCPCS: 62323; J1040; Q9966

== ENCOUNTER → 2019-04-17 09:33 | Outpatient (POV) | payer MEDICARE, BC, SELFPAY ==
[2019-04-17 10:06] VITALS: BP 144/70; PULSE 73; RESP 18; O2SAT 98; BMI 23.2
--- NOTE | 2019-04-17 12:35 | HMH.PAINSOAP ---
[facility] Pain Management SOAP Note Subjective:: Patient is a pleasant 84-year-old white female who presents today for follow-up. Patient is being treated for low back pain with lumbar radiculopathy symptoms and postlaminectomy syndrome of lumbar spine. Patient had a lumbar epidural steroid injection at L4 and L5. She says that she got about 60% relief with this injection. Patient says that she has had better relief with epidural injections in the past. She would like to try another epidural injection because she has had success with them in the past. The patient says that she will soon be traveling out of the state with her daughter for vacation. She would like to have the injection when she returns home she is having increased pain to her back that is worsening when trying to sleep at night. She rates her pain an 8 out of 10 today. She would like an increase in her medication. We are currently prescribing her tramadol 50 mg 1 p.o. 3 times daily. Her Gonzales #[id number] has been reviewed and is appropriate. The patient says that she does not have any side effects to the medications. The patient has taken gabapentin in the past and says that it did not work very well for her, it was worse than Tylenol . The patient is continuing a home stretching program and anti-inflammatories. Review of Systems General: No recent weight changes, no fever, no sleep disturbances Respiratory: No cough, no shortness of air, no recurring pulmonary infections Cardiovascular/peripheral vascular: No chest pain, no palpitations, no edema, no shortness of breath Gastrointestinal: No new onset incontinence, normal bowel movements reported Genitourinary: No new onset incontinence Musculoskeletal: Back pain Psychiatric: Normal mood/affect Neurological: [Denies weakness in extremities], [denies balance issues] Objective:: Physical exam General: Alert and oriented x3, no acute distress, pleasant and cooperative, [on room air] Lungs: Respirations even and unlabored, symmetrical chest expansion Eyes: PERRL Musculoskeletal: Flexion and extension of lumbar spine somewhat guarded secondary to pain, deep tendon reflexes normal, strength in upper and lower extremities [5/5], slightly antalgic gait noted Neurological: Speech clear, physician credentialing specialist equal, no gross sensory deficit Assessment:: Degenerative disc disease of lumbar spine with lumbar spondylosis and post laminectomy syndrome lumbar spine Plan:: We will refill the patient's tramadol and increase her dose to 50 mg 1 p.o. 5 times daily. We will give HER-2 months worth of medication and she can pick out hand her third met in the interim. We will also schedule the patient for a lumbar epidural steroid injection. The patient is not on any anticoagulation therapy. We will see the patient back after her procedure to reassess her symptoms at that time. She is been instructed to call the office if she has any concerns prior to her next appointment. Patient has been prescribed a controlled substance after being counseled on the medication, medication safety, and possible side effects. GONZALES report has been obtained and reviewed prior to prescription and found to be appropriate. Opioid contract was reviewed and signed by the patient, and that they have agreed to all of the terms set forth by our compliance program. Dr. Hayward has reviewed this note and agrees with this plan of care. This note was dictated using voice recognition software and make contain errors or omissions.
--- NOTE | 2019-04-17 12:38 | P.CONS_ITS ---
[facility] Pain Management SOAP Note Subjective:: Patient is a pleasant 84-year-old white female who presents today for follow-up. Patient is being treated for low back pain with lumbar radiculopathy symptoms and postlaminectomy syndrome of lumbar spine. Patient had a lumbar epidural steroid injection at L4 and L5. She says that she got about 60% relief with this injection. Patient says that she has had better relief with epidural injections in the past. She would like to try another epidural injection because she has had success with them in the past. The patient says that she will soon be traveling out of the state with her daughter for vacation. She would like to have the injection when she returns home she is having increased pain to her back that is worsening when trying to sleep at night. She rates her pain an 8 out of 10 today. She would like an increase in her medication. We are currently prescribing her tramadol 50 mg 1 p.o. 3 times daily. Her Gonzales #[id number] has been reviewed and is appropriate. The patient says that she does not have any side effects to the medications. The patient has taken gabapentin in the past and says that it did not work very well for her, it was worse than Tylenol . The patient is continuing a home stretching program and anti- inflammatories. Review of Systems General: No recent weight changes, no fever, no sleep disturbances Respiratory: No cough, no shortness of air, no recurring pulmonary infections Cardiovascular/peripheral vascular: No chest pain, no palpitations, no edema, no shortness of breath Gastrointestinal: No new onset incontinence, normal bowel movements reported Genitourinary: No new onset incontinence Musculoskeletal: Back pain Psychiatric: Normal mood/affect Neurological: [Denies weakness in extremities], [denies balance issues] Objective:: Physical exam General: Alert and oriented x3, no acute distress, pleasant and cooperative, [on room air] Lungs: Respirations even and unlabored, symmetrical chest expansion Eyes: PERRL Musculoskeletal: Flexion and extension of lumbar spine somewhat guarded secondary to pain, deep tendon reflexes normal, strength in upper and lower extremities [5/5], slightly antalgic gait noted Neurological: Speech clear, stripe matcher equal, no gross sensory deficit Assessment:: Degenerative disc disease of lumbar spine with lumbar spondylosis and post laminectomy syndrome lumbar spine Plan:: We will refill the patient's tramadol and increase her dose to 50 mg 1 p.o. 5 times daily. We will give HER-2 months worth of medication and she can package pick up her third met in the interim. We will also schedule the patient for a lumbar epidural steroid injection. The patient is not on any anticoagulation therapy. We will see the patient back after her procedure to reassess her symptoms at that time. She is been instructed to call the office if she has any concerns prior to her next appointment. Patient has been prescribed a controlled substance after being counseled on the medication, medication safety, and possible side effects. GONZALES report has been obtained and reviewed prior to prescription and found to be appropriate. Opioid contract was reviewed and signed by the patient, and that they have agreed to all of the terms set forth by our compliance program. Dr. Hayward has reviewed this note and agrees with this plan of care. This note was dictated using voice recognition software and make contain errors or omissions.
== END ==
PROVIDERS: PCP Family Medicine; Visit Provider Clinical Nurse Specialist Family Health
DX: M51.36 Other intervertebral disc degeneration, lumbar region (principal); M47.896 Other spondylosis, lumbar region; M96.1 Postlaminectomy syndrome, not elsewhere classified
CPT/HCPCS: 99212